=== PATIENT | female | born 1950 | race Hispanic/Latino ===

== ENCOUNTER 2016-12-08 22:54 | Emergency (ER) | payer OTHER ==
[~2016-12-08] VITALS: Ht 167.6 cm; Wt 59.0 kg
[~2016-12-08 22:54] MED LIST: ADVAIR DISKU 11 UNIT INH; ALBUTEROL0.09 MG/A1 INH; AZITHROMYCIN250 MG PO; CYCLOBENZAPRINE5 M2 PO; HYDROCHLOROTH12.5 MG PO; HYZAAR 12.5 MG-1 TAB PO; IBU-6600 MG PO; KLOR-CON 10MEQ10 MEQ PO; LISINOPRIL HCTZ1 TAB PO; MEDROL4 M2 PO; PERCOCET 325 MG1 TA2 PO; PERCOCET 5-3251 EACH PO; PREDNICOT10 MG AD; PREDNISONE 20MG20 MG PO; PREDNISONE50 MG PO; TUDORZA PR400 MCG/Ac INH; VENTOLIN H0.09 MG/Ac INH; VISTARIL25 MG PO; ZOFRAN 4 MG TABL4 MG PO; ZOFRAN4 M1 PO
--- NOTE | 2016-12-08 23:10 | ED DYSPNEA/ASTHMA COMPLAINT ---
History of Present Illness General Chief Complaint: General Adult Stated Complaint: NAUSEA, RAPID HEART BEAT PER PT, HX OF COPD Source: patient, family Exam Limitations: no limitations Vital Signs & Intake/Output Vital Signs & Intake/Output Vital Signs Date Time Temp Pulse Resp B/P Pulse O2 O2 Flow FiO2 Ox Delivery Rate 12/09 0035 97 Room Air 12/08 2306 98.5 122 18 112/64 94 Room Air ED Intake and Output 12/09 0000 12/08 1200 Intake Total Output Total Balance Patient 130 lb Weight Allergies Coded Allergies: hydrochlorothiazide (Intermediate, FACIAL SWELLING 09/22/16) Reconcile Medications Aclidinium [place]ane (Tudorza Pressair) 400 MCG/ACTUATION AER.POW.BA 400 MCG INH BID COPD (Reported) Albuterol Sulfate (Ventolin Hfa) 90 MCG HFA.AER.AD 2 PUFF INH PRN COPD ( Reported) Albuterol Sulfate (Ventolin Hfa) 90 MCG HFA.AER.AD 2 PUF INH Q4-6 PRN PRN WHEEZE Amoxicillin/Potassium Clav (Augmentin 875-125 Tablet) 875 MG-125 MG TABLET 1 TAB PO BID BRONCHITIS Cyclobenzaprine HCl 5 MG TABLET 1 TAB PO TIDPRN PRN pain Fluticasone-Salmeterol (Advair 100-50 Diskus) 100 MCG-50 MCG/DOSE BLST.W.DEV 1 PUF INH BID COPD (Reported) Hydrochlorothiazide 12.5 MG CAPSULE 1 TAB PO DAILY HTN Hydrochlorothiazide/Losartan (Hyzaar 12.5 MG-100 MG) 1 TAB TAB 1 TAB PO DAILY BP (Reported) Methylprednisolone. (Medrol) 4 MG TAB.DS.PK 1 DP PO AD radiculopathy 6 on day 1 then reduce by one tablet daily until gone Oxycodone HCl/Acetaminophen (Percocet 5-325 MG Tablet) 5 MG-325 MG TABLET 1 TAB PO TID PRN pain POTASSIUM CHLORIDE (KLOR-CON 10mEq TAB) 10 MEQ TABLET.ER 1 TAB PO DAILY PREVENT HYPERKALEMIA Prednisone 50 MG TABLET 1 TAB PO DAILY BRONCHITIS Triage Nurses Notes Reviewed? yes Onset: Gradual Duration: hour(s): Timing: recent history Severity: moderate Activities at Onset: "I was walking up the stairs" Prior Episodes/Possible Cause: occasional episodes Modifying Factors: Improves With: rest. Associated Symptoms: wheezing, palpitations HPI: 66 yo woman with copd, walked up a flight of stairs and felt short of breath and wheezy. She notes that she feels better after 2 nebulizer treatments, "but then my heart started beating so quickly." She notes that she is feeling better now. Past History Travel History Traveled to [place] past 21 day No Medical History Any Pertinent Medical History? 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 No Review of Systems Review of Systems Constitutional: Reports: no symptoms. EENTM: Reports: no symptoms. Respiratory: Reports: no symptoms. Cardiovascular: Reports: no symptoms. GI: Reports: no symptoms. Genitourinary: Reports: no symptoms. Musculoskeletal: Reports: no symptoms. Skin: Reports: no symptoms. Neurological/Psychological: Reports: no symptoms. Hematologic/Endocrine: Reports: no symptoms. Immunologic/Allergic: Reports: no symptoms. All Other Systems: Reviewed and Negative Physical Exam Physical Exam General Appearance: well developed/nourished, mild distress Head: atraumatic, normal appearance Eyes: Bilateral: normal appearance. Ears, Nose, Throat: normal pharynx, normal ENT inspection Neck: normal inspection, supple, full range of motion Respiratory: chest non-tender, wheezing Cardiovascular: regular rate/rhythm Gastrointestinal: normal bowel sounds, soft, non-tender, no organomegaly Extremities: normal inspection, normal capillary refill, normal range of motion, no edema Neurologic/Psych: no motor/sensory deficits, awake, alert, oriented x 3 Skin: intact, normal color, warm/dry Core Measures ACS in differential dx? No Severe Sepsis Present: No Septic Shock Present: No Progress Differential Diagnosis: asthma, costochondritis, CHF, COPD Plan of Care: Orders Procedure Date/time Status EKG 12/08 2300 Active TROPONIN LEVEL 12/08 2258 Complete COMPREHENSIVE METABOLIC PANEL 12/08 2258 Complete CBC WITHOUT DIFFERENTIAL 12/08 2258 Complete Current Medications Sig/Stefany Start time Last Medication Dose Stop Time Status Admin Amoxicillin/ 1,000 MG ONCE ONE 12/09 114 UNVr Clavulanate Potassium 12/09 115 (Augmentin) Prednisone 60 MG ONCE ONE 12/09 114 UNVr 12/09 115 Laboratory Tests 12/08/16 2324: Anion Gap 13, Estimated GFR 55 L, BUN/Creatinine Ratio 15.0, Glucose 126 H, Calcium 9.5, Total Bilirubin 0.7, AST 30, ALT 35, Alkaline Phosphatase 106, Troponin I < 0.01, Total Protein 7.3, Albumin 3.9, Globulin 3.4, Albumin/ Globulin Ratio 1.1, CBC w Diff NO MAN DIFF REQ, RBC 4.94, MCV 90.8, MCH 30.0, RDW 13.9, MPV 8.9, Gran % 74.8, Lymphocytes % 15.0 L, Monocytes % 6.8, Eosinophils % 3.1, Basophils % 0.3, Absolute Granulocytes 8.9 H, Absolute Lymphocytes 1.8, Absolute Monocytes 0.8 H, Absolute Eosinophils 0.4, Absolute Basophils 0, PUBS MCHC 33.1 Diagnostic Imaging: Viewed by Me: Radiology Read. Discussed w/RAD: Radiology Read. CXR Impression: no acute abnormality, no infiltrates, normal size heart, normal mediastinum Initial ED EKG: normal axis, normal intervals, normal p-waves, normal QRS complex, normal sinus rhythm Comments: PATIENT: DARIEN ELIZABETH PRESENT AGE: 66 PATIENT ACCOUNT NO: [id number] : 48 LOCATION: [facility] ORDERING PHYSICIAN: DYLON JUAN MD SERVICE DATE: 12/08/16 EXAM TYPE: RAD - XRY-PORTABLE CHEST XRAY EXAMINATION: XR PORTABLE CHEST CLINICAL INFORMATION: Dyspnea. COMPARISON: Multiple priors, most recently chest CT from 08/26/2016. TECHNIQUE: Portable view of the chest was obtained. FINDINGS: Cardiac leads overlie the chest. The lungs are well expanded. There is no focal consolidation, edema, or effusion. No pneumothorax. The cardiomediastinal silhouette is within normal limits. No acute osseous abnormality. IMPRESSION: No acute pulmonary findings. DICTATED BY: SONAL SANTANA MD DATE/TIME DICTATED:12/09/1648 VISCERA WASHER:SHEYLA DATE/TIME TRANSCRIBED:12/09/1648 CONFIDENTIAL, DO NOT COPY WITHOUT APPROPRIATE AUTHORIZATION. <Electronically signed in Other Vendor System> SIGNED BY: SONAL SANTANA MD 12/09 0053 Departure Departure Disposition: HOME OR SELF CARE Condition: Stable Clinical Impression Primary Impression: Bronchitis Secondary Impressions: COPD (chronic obstructive pulmonary disease) Referrals: AMISH MCCRARY,BONI Rivera (PCP/Family) Departure Forms: Customer Survey General Discharge Information Prescriptions: Current Visit Scripts Amoxicillin/Potassium Clav (Augmentin 875-125 Tablet) 1 TAB PO BID #20 TAB Prednisone 1 TAB PO DAILY #4 TAB Albuterol Sulfate (Ventolin Hfa) 2 PUF INH Q4-6 PRN PRN WHEEZE #1 INHAL Ref 1 Comments 12/09/16, 1:04am... pt has been feeling well in ED... 02 sat >98%.... labs/cxr benign... pt safe for discharge... gave steroids/abx and sent rx of same to her pharmacy... close follow up advised. Critical Care Note Critical Care Note Critical Care Time: non-applicable
[2016-12-08 23:43] LABS: ABSOLUTE BASOPHIL COUNT 0 /CUMM (0.0-0.2); ABSOLUTE EOSINOPHIL COUNT 0.4 /CUMM (0.0-0.7); ABSOLUTE GRANULOCYTE CT 8.9 /CUMM (1.4-6.5); ABSOLUTE LYMPH COUNT 1.8 /CUMM (1.2-3.4); ABSOLUTE MONOCYTE COUNT 0.8 /CUMM (0.10-0.60); BASOPHIL % 0.3 % (0.0-2.0); EOSINOPHIL % 3.1 % (0-5); GRANULOCYTE % 74.8 % (42.2-75.2); HEMATOCRIT 44.8 % (37-47); MEAN CORPUSCULAR HGB CONC 33.1 G/DL (33.0-37.0); MEAN CORPUSCULAR VOLUME 90.8 FL (81.0-99.0); MEAN PLATELET VOLUME 8.9 FL (7.4-10.4); RBC DISTRIBUTION WIDTH 13.9 % (11.5-14.5); RED BLOOD CELL CT 4.94 /CUMM (4.20-5.40); WHITE BLOOD CELL COUNT 11.9 /CUMM (4.8-10.8)
--- NOTE | 2016-12-09 00:53 | RADIOLOGY REPORT ---
EXAMINATION: XR PORTABLE CHEST CLINICAL INFORMATION: Dyspnea. COMPARISON: Multiple priors, most recently chest CT from 08/26/2016. TECHNIQUE: Portable view of the chest was obtained. FINDINGS: Cardiac leads overlie the chest. The lungs are well expanded. There is no focal consolidation, edema, or effusion. No pneumothorax. The cardiomediastinal silhouette is within normal limits. No acute osseous abnormality. IMPRESSION: No acute pulmonary findings.
[2016-12-09] MEDS ORDERED: AUGMENTIN 875-1 EACH PO (01:02)
[2016-12-09] MEDS ORDERED: PREDNISONE50 M1 PO (01:02)
[2016-12-09] MEDS ORDERED: VENTOLIN HFA18 GM INH (01:02)
[2016-12-09 01:16] VITALS: BP 114/73
== END 2016-12-09 01:19 ==
LOC: ERH 22:54
PROVIDERS: Pediatrics
DX: J44.9 Chronic obstructive pulmonary disease, unspecified (principal)
CPT/HCPCS: 93005; 93010; J3490

== ENCOUNTER 2018-01-26 11:57 | Inpatient (IN) | payer OTHER ==
[~2018-01-26] VITALS: Ht 162.6 cm; Wt 90.3 kg
[~2018-01-26 11:57] MED LIST changes: +ADVAIR 100-501 EACH INH; -ADVAIR DISKU 11 UNIT INH; +AUGMENTIN 875-1 EACH PO; +BACTRIM DS TAB1 EACH PO; +DOXYCYCLINE HY100 M4 PO; +HYZAAR 100-12.1 EACH PO; -HYZAAR 12.5 MG-1 TAB PO; +PREDNISONE50 M1 PO; +VENTOLIN HFA18 GM INH
--- NOTE | 2018-01-26 13:52 | ED GI/GU/ABDOMINAL COMPLAINT ---
History of Present Illness General Chief Complaint: Abdominal Pain/Flank Pain Stated Complaint: ABD PAIN X 2 WEEKS Source: patient Exam Limitations: no limitations Vital Signs & Intake/Output Vital Signs & Intake/Output Vital Signs Date Time Temp Pulse Resp B/P B/P Pulse O2 O2 Flow FiO2 Mean Ox Delivery Rate 01/26 1952 97.7 77 24 158/70 98 01/26 1728 97.4 72 20 152/66 97 Room Air 01/26 1542 98.1 67 20 159/70 97 Room Air 01/26 1502 98.1 66 18 148/80 98 Room Air 01/26 1439 97 Room Air 01/26 1214 97.3 71 20 119/78 98 Room Air Allergies Coded Allergies: No Known Allergies (01/26/18) Reconcile Medications Albuterol Sulfate (Ventolin Hfa) 90 MCG HFA.AER.AD 2 PUF INH Q4-6 PRN PRN WHEEZE Fluticasone-Salmeterol (Advair 100-50 Diskus) 100 MCG-50 MCG/DOSE BLST.W.DEV 1 PUF INH BID COPD (Reported) Losartan/Hydrochlorothiazide (Hyzaar 100-12.5 Tablet) 100 MG-12.5 MG TABLET 1 TAB PO DAILY HEART (Reported) Omeprazole 40 MG CAPSULE.DR 1 CAP PO DAILY GI (Reported) Umeclidinium [place] (Incruse Ellipta) 62.5 MCG/ACTUATION BLST.W.DEV 1 PUFF PO DAILY BREATHING PROBLEMS (Reported) Triage Note: PT C/O ABDOMINAL PAIN X 2 WEEKS. + NAUSEA. PT STATES SHE ATE TOAST AND COFFEE THIS MORNING AND THE PAIN STARTED AGAING. STATES THE PAIN COMES BACK AFTER EATING OR DRINKING WATER, Triage Nurses Notes Reviewed? yes ? n Is pt currently ? No Onset: Gradual Duration: week(s): Timing: recent history Quality/Severity: moderate Location: left lower quadrant HPI: 67yo female with hx of COPD, HTN, GERD presents to ED complaining of LLQ pain x 2 weeks. Patient states the pain has been gradually worsening and is currently severe, 10/10, worse with movement. Patient has no history of a similar abdominal pain. Patient also reports nausea without vomiting. Patient reports being very thirsty. Last bowel movement was this morning and normal. She denies dysuria, urinary frequency, diarrhea, constipation fever. (Roya Pierce) Past History Travel History Traveled to [place] past 21 day No Medical History Any Pertinent Medical History? 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 No (Roya Pierce) Review of Systems Review of Systems Constitutional: Reports: no symptoms. EENTM: Reports: no symptoms. Respiratory: Reports: no symptoms. Cardiovascular: Reports: no symptoms. GI: Reports: see HPI. Genitourinary: Reports: no symptoms. Musculoskeletal: Reports: no symptoms. Skin: Reports: no symptoms. Neurological/Psychological: Reports: no symptoms. Hematologic/Endocrine: Reports: no symptoms. Immunologic/Allergic: Reports: no symptoms. All Other Systems: Reviewed and Negative (Roya Pierce) Physical Exam Physical Exam General Appearance: well developed/nourished, alert, awake Head: atraumatic, normal appearance Eyes: Bilateral: normal appearance. Ears, Nose, Throat, Mouth: hearing grossly normal Neck: normal inspection, supple, full range of motion Respiratory: normal breath sounds, no respiratory distress, lungs clear Cardiovascular: regular rate/rhythm Gastrointestinal: soft, EPIGASTRIC, LUQ, LLQ TENDERNESS WITH GAURDING, NO ECCHYMOSIS Back: normal inspection, normal range of motion, NO CVA TENDERNESS Extremities: normal range of motion Neurologic/Psych: awake, alert, oriented x 3 Skin: intact, normal color, warm/dry Core Measures ACS in differential dx? No Sepsis Present: No Sepsis Focused Exam Completed? No (Roya Pierce) Progress Differential Diagnosis: bowel obstruction, cholecystitis, diverticulitis, gastritis, hepatitis, hernia, ischemic bowel, inflamm bowel dis, ovarian cyst, ovarian torsion, pancreatitis, PID/cervicitis, peptic ulcer, perforated viscous, SBO, UTI/pyelo Plan of Care: Orders Procedure Date/time Status Nothing by Mouth 01/27 B Active ED Holding Orders 01/26 2136 Active Admit to inpatient 01/26 2136 Active Vital Signs 01/26 2136 Active Code Status 01/26 2136 Active Add-on Test (ER Only) 01/26 173 Active URINALYSIS 01/26 140 Complete TRIGLYCERIDES 01/26 140 Complete LIPASE 01/26 140 Complete LACTIC ACID 01/26 140 Complete HIGH SENSITIVITY CRP 01/26 140 Complete COMPREHENSIVE METABOLIC PANEL 01/26 140 Complete AMYLASE 01/26 1409 Complete CBC WITHOUT DIFFERENTIAL 01/26 1346 Complete Current Medications Sig/Stefany Start time Last Medication Dose Stop Time Status Admin Ampicillin Sodium/ 1,500 MG ONCE ONE 01/26 2145 UNir Sulbactam Sodium 01/26 2214 (Unasyn) Sodium Chloride 100 ML (Normal Saline 0.9%) Laboratory Tests 01/26/18 1709: Lactic Acid Cancelled 01/26/18 1656: Urine Color YEL, Urine Clarity CLEAR, Urine pH 6.0, Ur Specific Joy 1.020, Urine Protein NEG, Urine Ketones NEG, Urine Nitrite NEG, Urine Bilirubin NEG@ ICTO, Urine Urobilinogen 1.0, Ur Leukocyte Esterase NEG, Ur Microscopic EXAM NOT REQUIRED, Urine Hemoglobin NEG, Urine Glucose NEG 01/26/18 1426: CBC w Diff NO MAN DIFF REQ, RBC 4.67, MCV 90.9, MCH 30.9, MCHC 33.9, RDW 15.6 H , MPV 8.9, Gran % 80.1 H, Lymphocytes % 9.8 L, Monocytes % 7.2, Eosinophils % 2.4, Basophils % 0.5, Absolute Granulocytes 6.9 H, Absolute Lymphocytes 0.8 L, Absolute Monocytes 0.6, Absolute Eosinophils 0.2, Absolute Basophils 0 01/26/18 1409: Anion Gap 11, Estimated GFR 55 L, BUN/Creatinine Ratio 20.0, Glucose 125 H, Lactic Acid 1.7, Calcium 9.9, Total Bilirubin 4.6 H, AST 310 H, ALT 397 H, Alkaline Phosphatase 332 H, C-React Prot High Sens 12.7 H, Total Protein 7.6, Albumin 4.2, Globulin 3.4, Albumin/Globulin Ratio 1.2, Triglycerides 71, Amylase 1171 H, Lipase > 83319 H 01/26/18 1346: Sodium Cancelled, Potassium Cancelled, Chloride Cancelled, Carbon Dioxide Cancelled, Anion Gap Cancelled, BUN Cancelled, Creatinine Cancelled, BUN/ Creatinine Ratio Cancelled, Glucose Cancelled, Calcium Cancelled, Total Bilirubin Cancelled, AST Cancelled, ALT Cancelled, Alkaline Phosphatase Cancelled, Total Protein Cancelled, Albumin Cancelled, Globulin Cancelled, Albumin/Globulin Ratio Cancelled, Amylase Cancelled, Lipase Cancelled Patient reports improvement in pain following IV morphine and Zofran. Patient medicated with 2 L normal saline. Labs show abnormality in amylase, lipase, bilirubin, liver enzymes. CT scan shows cholelithiasis and pancreatitis. Awaiting general surgery and GI consult. The patient was signed out to Dr. Naik pending consults. Diagnostic Imaging: Viewed by Me: CT Scan. Discussed w/RAD: CT Scan. Radiology Impression: PATIENT: DARIEN ELIZABETH PRESENT AGE: 67 PATIENT ACCOUNT NO: [id number] : 48 LOCATION: [facility] ORDERING PHYSICIAN: Roya ZHENG SERVICE DATE: 01/26/18 EXAM TYPE: CAT - CT ABD & PELVIS W IV CONTRAST EXAMINATION: CT ABDOMEN AND PELVIS WITH CONTRAST CLINICAL INFORMATION: 67-year-old female with left-sided abdominal pain for 2 weeks. Elevated bilirubin and LFTs. COMPARISON: CT of the abdomen and pelvis on 09/22/2016. (Cholelithiasis). TECHNIQUE: Multidetector volumetric imaging was performed of the abdomen and pelvis following IV administration of 95 mL of Optiray 320 intravenous contrast. Sagittal and coronal reformatted images were obtained on the technologist's workstation. DLP: 515 mGy-cm FINDINGS : HAND STRIPER: Noncontributory. LUNG BASES: The visualized lung bases are unremarkable. LIVER, GALLBLADDER, AND BILIARY TREE: The liver is normal in size, contour, and attenuation. There is mild dilatation of the intrahepatic biliary ducts. The common bile duct measures 8 mm in the region of the head of the pancreas. Small stones are present in the gallbladder. The stones are located in the gallbladder body and proximal portion of the gallbladder lumen. Gallbladder wall is of average thickness measuring 2 mm. No pericholecystic fluid or surrounding inflammatory reaction is seen. PANCREAS: The pancreas is normal in size but there is evidence of peripancreatic stranding diagnostic of early pancreatitis. No complications are seen. No large effusions are present. SPLEEN: Unremarkable. ADRENAL GLANDS: Unremarkable. KIDNEYS AND URETERS: The kidneys are normal in size, shape, and attenuation. No hydronephrosis, hydroureter, or calculi seen. No perinephric stranding. BLADDER: Empty. GASTROINTESTINAL TRACT: Diverticula are seen in the sigmoid colon. There is no evidence of diverticulitis. The appendix is normal. ABDOMINAL WALL: No significant hernia is appreciated. LYMPH NODES: Normal. VASCULAR: Unremarkable. PELVIC VISCERA: Uterus is retroverted and normal in size. No free fluid is seen. OSSEOUS STRUCTURES: Disc disease L4-L5. There is evidence of a free disc fragment posterior to L5. IMPRESSION: 1. Cholelithiasis. 2. Peripancreatic stranding secondary to acute pancreatitis. No complications. DICTATED BY: Conrad Arias MD DATE/TIME DICTATED:01/26/181742 SALON PROFESSIONAL:SHEYLA DATE/TIME TRANSCRIBED:1742 CONFIDENTIAL, DO NOT COPY WITHOUT APPROPRIATE AUTHORIZATION. < Electronically signed in Other Vendor System> SIGNED BY: Conrad Arias MD 01/26/18 5661 Initial ED EKG: none Hand-Off Endorsed To: Robert Naik MD Endorsed Time: 1835 Pending: consult (Roya Pierce) Hand-Off Endorsed To: Nahum Niño MD Endorsed Time: 1904 Pending: consult (Surgery) Comments: D/W GI, Dr. Yeh available. D/W Dr. Mariee, call Saron PA for evaluation. (Robert Naik MD) Departure Departure Disposition: STILL A PATIENT Condition: Stable Clinical Impression Primary Impression: Gallstone pancreatitis Secondary Impressions: Abdominal pain Qualifiers: Abdominal location: left lower quadrant Qualified Code: R10.32 - Left lower quadrant pain Referrals: Kane MCCRARY,Cecil Rivera (PCP/Family) Departure Forms: Customer Survey General Discharge Information (Roya Pierce) PA/REGISTERED MEDICAL TRANSCRIPTIONIST Co-Sign Statement Statement: ED Attending supervision documentation- x I saw and evaluated the patient. I have also reviewed all the pertinent lab results and diagnostic results. I agree with the findings and the plan of care as documented in the PA's/REGISTERED MEDICAL TRANSCRIPTIONIST's documentation. 2 weeks of abdominal pain [] I have reviewed the ED Record and agree with the PA's/REGISTERED MEDICAL TRANSCRIPTIONIST's documentation. [] Additions or exceptions (if any) to the PAs/REGISTERED MEDICAL TRANSCRIPTIONIST's note and plan are summarized below: [] (Gumaro MCCRARY,Robert) Admission Note Spoke With: Krystal Wood MD Documentation of Exam: Documentation of any treatments & extenuating circumstances including Concerns Regarding Discharge (functional status, medication knowledge or non-compliance, living conditions, etc.) that warrant an admission rather than observation: [IV ABX, IV PAIN CONTROL, IV FLUIDS, GASTROENTEROLOGY AND SURGICAL CONSULT] PA/REGISTERED MEDICAL TRANSCRIPTIONIST Co-Sign Statement Statement: ED Attending supervision documentation- [] I saw and evaluated the patient. I have also reviewed all the pertinent lab results and diagnostic results. I agree with the findings and the plan of care as documented in the PA's/REGISTERED MEDICAL TRANSCRIPTIONIST's documentation. [] I have reviewed the ED Record and agree with the PA's/REGISTERED MEDICAL TRANSCRIPTIONIST's documentation. [] Additions or exceptions (if any) to the PAs/REGISTERED MEDICAL TRANSCRIPTIONIST's note and plan are summarized below: [Patient has been seen and evaluated by surgery. Patient will be a medical admission with surgical and gastroenterology consultation.] (Renay MCCRARY,Nahum Howard
[2018-01-26 14:37] LABS: ABSOLUTE BASOPHIL COUNT 0 /CUMM (0.0-0.2); ABSOLUTE EOSINOPHIL COUNT 0.2 /CUMM (0.0-0.7); ABSOLUTE GRANULOCYTE CT 6.9 /CUMM (1.4-6.5); ABSOLUTE LYMPH COUNT 0.8 /CUMM (1.2-3.4); ABSOLUTE MONOCYTE COUNT 0.6 /CUMM (0.10-0.60); BASOPHIL % 0.5 % (0.0-2.0); EOSINOPHIL % 2.4 % (0-5); GRANULOCYTE % 80.1 % (42.2-75.2); HEMATOCRIT 42.5 % (37-47); MEAN CORPUSCULAR HGB 30.9 PG (27.0-31.0); MEAN CORPUSCULAR HGB CONC 33.9 G/DL (33.0-37.0); MEAN CORPUSCULAR VOLUME 90.9 FL (81.0-99.0); MEAN PLATELET VOLUME 8.9 FL (7.4-10.4); PLATELET COUNT 208 /CUMM (130-400); RBC DISTRIBUTION WIDTH 15.6 % (11.5-14.5); RED BLOOD CELL CT 4.67 /CUMM (4.20-5.40); WHITE BLOOD CELL COUNT 8.6 /CUMM (4.8-10.8)
[2018-01-26] MEDS ORDERED: INCRUSE ELLI62.5 MCG PO (15:43)
[2018-01-26] MEDS ORDERED: OMEPRAZOLE40 M1 PO (15:44)
--- NOTE | 2018-01-26 17:58 | CT SCAN REPORT ---
EXAMINATION: CT ABDOMEN AND PELVIS WITH CONTRAST CLINICAL INFORMATION: 67-year-old female with left-sided abdominal pain for 2 weeks. Elevated bilirubin and LFTs. COMPARISON: CT of the abdomen and pelvis on 09/22/2016. (Cholelithiasis). TECHNIQUE: Multidetector volumetric imaging was performed of the abdomen and pelvis following IV administration of 95 mL of Optiray 320 intravenous contrast. Sagittal and coronal reformatted images were obtained on the technologist's workstation. DLP: 515 mGy-cm FINDINGS: SOLE FILLER: Noncontributory. LUNG BASES: The visualized lung bases are unremarkable. LIVER, GALLBLADDER, AND BILIARY TREE: The liver is normal in size, contour, and attenuation. There is mild dilatation of the intrahepatic biliary ducts. The common bile duct measures 8 mm in the region of the head of the pancreas. Small stones are present in the gallbladder. The stones are located in the gallbladder body and proximal portion of the gallbladder lumen. Gallbladder wall is of average thickness measuring 2 mm. No pericholecystic fluid or surrounding inflammatory reaction is seen. PANCREAS: The pancreas is normal in size but there is evidence of peripancreatic stranding diagnostic of early pancreatitis. No complications are seen. No large effusions are present. SPLEEN: Unremarkable. ADRENAL GLANDS: Unremarkable. KIDNEYS AND URETERS: The kidneys are normal in size, shape, and attenuation. No hydronephrosis, hydroureter, or calculi seen. No perinephric stranding. BLADDER: Empty. GASTROINTESTINAL TRACT: Diverticula are seen in the sigmoid colon. There is no evidence of diverticulitis. The appendix is normal. ABDOMINAL WALL: No significant hernia is appreciated. LYMPH NODES: Normal. VASCULAR: Unremarkable. PELVIC VISCERA: Uterus is retroverted and normal in size. No free fluid is seen. OSSEOUS STRUCTURES: Disc disease L4-L5. There is evidence of a free disc fragment posterior to L5. IMPRESSION: 1. Cholelithiasis. 2. Peripancreatic stranding secondary to acute pancreatitis. No complications.
[2018-01-26 23:04] VITALS: BP 150/80
--- NOTE | 2018-01-26 23:15 | Cons- General Surgery ---
Pamela Turner 01/26/182306: General Information and HPI Consulting Request Date of Consult: 01/26/18 Requested By: Krystal Wood MD Reason for Consult: gallstone pancreatitis History of Present Illness: 67yoF with 2 weeks hx worsening abd pain, came to ED today due to severe mid- epigastric pain. Some nausea, no vomiting. +chills at home, subjective fever. No co/sob. No changes in urination or bowel habits. decreased appetite. No hx pancreatitis, no dx gallstones, no abdominal surgery history. Hx colonoscopy and egd, normal per pt. no family hx gi d/o, pancreatic ca, pancreatitis. Allergies/Medications Allergies: Coded Allergies: No Known Allergies (01/26/18) Home Med List: Albuterol Sulfate (Ventolin Hfa) 90 MCG HFA.AER.AD 2 PUF INH Q4-6 PRN PRN WHEEZE Fluticasone-Salmeterol (Advair 100-50 Diskus) 100 MCG-50 MCG/DOSE BLST.W.DEV 1 PUF INH BID COPD (Reported) Losartan/Hydrochlorothiazide (Hyzaar 100-12.5 Tablet) 100 MG-12.5 MG TABLET 1 TAB PO DAILY HEART (Reported) Omeprazole 40 MG CAPSULE.DR 1 CAP PO DAILY GI (Reported) Umeclidinium [place] (Incruse Ellipta) 62.5 MCG/ACTUATION BLST.W.DEV 1 PUFF PO DAILY BREATHING PROBLEMS (Reported) Past History Medical History Neurological: NONE EENT: NONE Cardiovascular: hypertension Respiratory: COPD Gastrointestinal: NONE Hepatic: NONE Renal: NONE Musculoskeletal: NONE Psychiatric: NONE Endocrine: NONE Blood Disorders: NONE Cancer(s): NONE PAINTER DECORATOR/Reproductive: NONE Surgical History Pertinent Surgical History: none Psychosocial History Smoking Status: Former Smoker ETOH Use: denies use Illicit Drug Use: denies illicit drug use Exam & Diagnostic Data Vital Signs and I&O Vital Signs Date Time Temp Pulse Resp B/P B/P Pulse O2 O2 Flow FiO2 Mean Ox Delivery Rate 01/264 98.1 83 18 150/80 94 01/267 97.8 79 18 170/78 96 Room Air 01/26 1952 97.7 77 24 158/70 98 01/26 1728 97.4 72 20 152/66 97 Room Air 01/26 1542 98.1 67 20 159/70 97 Room Air 01/26 1502 98.1 66 18 148/80 98 Room Air 01/26 1439 97 Room Air 01/26 1214 97.3 71 20 119/78 98 Room Air Intake & Output 01/26 1600 01/26 0800 01/26 0000 01/25 1600 01/25 0801/25 0000 Intake Total 1000 Output Total Balance 1000 Intake, IV 1000 Patient 210 lb Weight Weight Reported by Patient Measurement Method Physical Exam: geb- nad card- s1s2 pulm- ctab abd- obese, soft, nt, +bs ext- calves soft nt bl Last 24 Hours of Labs: Laboratory Tests 01/26 01/26 1709 1656 Chemistry Lactic Acid Cancelled Urines Urine Color (YEL,AMB,STR) YEL Urine Clarity (CLEAR) CLEAR Urine pH (5.0 - 8.0) 6.0 Ur Specific [place] (1.001 - 1.035) 1.020 Urine Protein (NEG,<30 MG/DL) NEG Urine Ketones (NEG) NEG Urine Nitrite (NEG) NEG Urine Bilirubin (NEG) NEG@ICTO Urine Urobilinogen (0.1 - 1.0 EU/dl) 1.0 Ur Leukocyte Esterase (NEG) NEG Ur Microscopic EXAM NOT REQUIRED Urine Hemoglobin (NEG) NEG Urine Glucose (N MG/DL) NEG 01/26 01/26 1426 1409 Chemistry Sodium (137 - 145 mmol/L) 139 Potassium (3.5 - 5.1 mmol/L) 4.2 Chloride (98 - 107 mmol/L) 102 Carbon Dioxide (22 - 30 mmol/L) 26 Anion Gap (5 - 16) 11 BUN (7 - 17 mg/dL) 20 H Creatinine (0.5 - 1.0 mg/dL) 1.0 Estimated GFR (>60 ml/min) 55 L BUN/Creatinine Ratio (7 - 25 %) 20.0 Glucose (65 - 99 mg/dL) 125 H Lactic Acid (0.7 - 2.1 mmol/L) 1.7 Calcium (8.4 - 10.2 mg/dL) 9.9 Total Bilirubin (0.2 - 1.3 mg/dL) 4.6 H AST (14 - 36 U/L) 310 H ALT (9 - 52 U/L) 397 H Alkaline Phosphatase (<127 U/L) 332 H C-React Prot High Sens (1.0 - 3.0 mg/L) 12.7 H Total Protein (6.3 - 8.2 g/dL) 7.6 Albumin (3.5 - 5.0 g/dL) 4.2 Globulin (1.9 - 4.2 gm/dL) 3.4 Albumin/Globulin Ratio (1.1 - 2.2 %) 1.2 Triglycerides (<150 mg/dL) 71 Amylase (30 - 110 U/L) 1171 H Lipase (23 - 300 U/L) > 64767 H Hematology CBC w Diff NO MAN DIFF REQ WBC (4.8 - 10.8 /CUMM) 8.6 RBC (4.20 - 5.40 /CUMM) 4.67 Hgb (12.0 - 16.0 G/DL) 14.4 Hct (37 - 47 %) 42.5 MCV (81.0 - 99.0 FL) 90.9 MCH (27.0 - 31.0 PG) 30.9 MCHC (33.0 - 37.0 G/DL) 33.9 RDW (11.5 - 14.5 %) 15.6 H Plt Count (130 - 400 /CUMM) 208 MPV (7.4 - 10.4 FL) 8.9 Gran % (42.2 - 75.2 %) 80.1 H Lymphocytes % (20.5 - 51.1 %) 9.8 L Monocytes % (1.7 - 9.3 %) 7.2 Eosinophils % (0 - 5 %) 2.4 Basophils % (0.0 - 2.0 %) 0.5 Absolute Granulocytes (1.4 - 6.5 /CUMM) 6.9 H Absolute Lymphocytes (1.2 - 3.4 /CUMM) 0.8 L Absolute Monocytes (0.10 - 0.60 /CUMM) 0.6 Absolute Eosinophils (0.0 - 0.7 /CUMM) 0.2 Absolute Basophils (0.0 - 0.2 /CUMM) 0 01/26 1346 Chemistry Sodium Cancelled Potassium Cancelled Chloride Cancelled Carbon Dioxide Cancelled Anion Gap Cancelled BUN Cancelled Creatinine Cancelled BUN/Creatinine Ratio Cancelled Glucose Cancelled Calcium Cancelled Total Bilirubin Cancelled AST Cancelled ALT Cancelled Alkaline Phosphatase Cancelled Total Protein Cancelled Albumin Cancelled Globulin Cancelled Albumin/Globulin Ratio Cancelled Amylase Cancelled Lipase Cancelled Imaging Results: SERVICE DATE: 01/26/18 EXAM TYPE: CAT - CT ABD & PELVIS W IV CONTRAST EXAMINATION: CT ABDOMEN AND PELVIS WITH CONTRAST CLINICAL INFORMATION: 67-year-old female with left-sided abdominal pain for 2 weeks. Elevated bilirubin and LFTs. COMPARISON: CT of the abdomen and pelvis on 09/22/2016. (Cholelithiasis). TECHNIQUE: Multidetector volumetric imaging was performed of the abdomen and pelvis following IV administration of 95 mL of Optiray 320 intravenous contrast. Sagittal and coronal reformatted images were obtained on the technologist's workstation. DLP: 515 mGy-cm FINDINGS: PUBLIC HEALTH INSPECTOR: Noncontributory. LUNG BASES: The visualized lung bases are unremarkable. LIVER, GALLBLADDER, AND BILIARY TREE: The liver is normal in size, contour, and attenuation. There is mild dilatation of the intrahepatic biliary ducts. The common bile duct measures 8 mm in the region of the head of the pancreas. Small stones are present in the gallbladder. The stones are located in the gallbladder body and proximal portion of the gallbladder lumen. Gallbladder wall is of average thickness measuring 2 mm. No pericholecystic fluid or surrounding inflammatory reaction is seen. PANCREAS: The pancreas is normal in size but there is evidence of peripancreatic stranding diagnostic of early pancreatitis. No complications are seen. No large effusions are present. SPLEEN: Unremarkable. ADRENAL GLANDS: Unremarkable. KIDNEYS AND URETERS: The kidneys are normal in size, shape, and attenuation. No hydronephrosis, hydroureter, or calculi seen. No perinephric stranding. BLADDER: Empty. GASTROINTESTINAL TRACT: Diverticula are seen in the sigmoid colon. There is no evidence of diverticulitis. The appendix is normal. ABDOMINAL WALL: No significant hernia is appreciated. LYMPH NODES: Normal. VASCULAR: Unremarkable. PELVIC VISCERA: Uterus is retroverted and normal in size. No free fluid is seen. OSSEOUS STRUCTURES: Disc disease L4-L5. There is evidence of a free disc fragment posterior to L5. IMPRESSION: 1. Cholelithiasis. 2. Peripancreatic stranding secondary to acute pancreatitis. No complications. Assessment/Plan Assessment/Plan A-67F with gallstone pancreatitis, with elevated bili and lipase/amylase, stable P- agree w medicine admit GI consult- likely ercp NPO aggressive IVF prn pain meds eventual cholecystectomy will dw Dr. Mariee Consult Acknowledgment - Thank you for your consult request. Kodi Ranjith ACEVEDO 01/28/18 1321: Review of Systems Review of Systems: All negative aside for the above mentioned pertinent positives. Assessment/Plan Consult Acknowledgment - Thank you for your consult request. Attending MD Review Statement Attending Statement Attending MD Statement: examined this patient, discuss w/resident/PA/ELECTRIC HOIST OPERATOR, agreed w/resident/PA/ELECTRIC HOIST OPERATOR, reviewed EMR data (avail), reviewed images Attending Assessment/Plan: Patient seen and examined, agree with above. Patient presented with abdominal pain. Found to have gallstone pancreatitis with elevated LFTs. Underwent an ERCP which was negative for choledocholithiasis, sphincterotomy was done, cystic duct was patent. AVSS. Abd-soft, diffuse tenderness. WBC 20, LFTs lower but remain elevated. Patient still c/o significant abdominal pain, cont current mangement with IVF/NPO, would hold off Lap Marguerite until pain starts to improve/pancreatitis resolves. Will follow.
--- NOTE | 2018-01-26 23:47 | Admission Certification ---
Admission Certification Certification Statement - As attending physician, I certify that at the time of - admission, based on clinical presentation, severity of - symptoms, need for further diagnostic testing and - therapeutic interventions, and risk of adverse outcomes - without in-hospital treatment, in my clinical assessment, - this patient requires an acute hospital stay for a minimum - of two nights or longer. I have also considered psychsocial - factors such as support system, advanced age, financial - issues, cognitive issues, and failed out-patient treatments, - past re-admission history, safety of patient, and lack of - compliance as applicable. Specific rationale supporting this admission is: Gallstone pancreatitis with possible choledocholithiasis with cholangitis.
--- NOTE | 2018-01-26 23:47 | History & Physical ---
Trina Ram MD 01/26/18 9457: General Information and HPI MD Statement: I have seen and personally examined DARIEN ELIZABETH and documented this H&P. The patient is a 67 year old F who presented with a patient stated chief complaint of [left lower quadrant abdominal pain]. Source of Information: patient Exam Limitations: no limitations History of Present Illness: 67 years old female with past medical history of hypertension, GERD and COPD presents to the ED complaining of abdominal pain for 2 weeks which was getting progressively worse. This morning when it was severe pain 10/10 in severity, sharp left lower quadrant, radiates to the back initially intermittent then became constant and not related to food intake. Patient also endorses nausea, vomiting, dizziness, chills .She denies fever, diarrhea, dysuria or frequency. She also denies any chest pain or shortness of breath. Patient consumes alcohol occasionally, she is an ex-smoker used to smoke 1 pack per day and quit it 10 years ago. Patient denies any history of similar pain in the past or abdominal discomfort with fatty meals. She also denies any recent travel or sick contacts ED course: Vital signs: Blood pressure 158/70, pulse 77, respiratory 24, temperature 97.7, pulse ox 98 on room air Labs: WBC 8.6, hemoglobin 14.4, platelets 208, sodium 139, potassium 4.2, BUN 20 , creatinine 1, glucose 125, total bilirubin 4.6, direct 4.3.4, AST 310, AST 397 , alkaline phosphatase 332, CRP 12.7, amylase 1171, lipase more than 10,000 Urinalysis was normal Abdominal CT: 1. Cholelithiasis. 2. Peripancreatic stranding secondary to acute pancreatitis. No complications. 3.The common bile duct measures 8 mm in the region of the head of the pancreas. EKG: Sinus tachycardia Heart rate 111, QTC 441, no STT wave changes Allergies/Medications Allergies: Coded Allergies: No Known Allergies (01/26/18) Home Med list Albuterol Sulfate (Ventolin Hfa) 90 MCG HFA.AER.AD 2 PUF INH Q4-6 PRN PRN WHEEZE Fluticasone-Salmeterol (Advair 100-50 Diskus) 100 MCG-50 MCG/DOSE BLST.W.DEV 1 PUF INH BID COPD (Reported) Losartan/Hydrochlorothiazide (Hyzaar 100-12.5 Tablet) 100 MG-12.5 MG TABLET 1 TAB PO DAILY HEART (Reported) Omeprazole 40 MG CAPSULE.DR 1 CAP PO DAILY GI (Reported) Umeclidinium [place] (Incruse Ellipta) 62.5 MCG/ACTUATION BLST.W.DEV 1 PUFF PO DAILY BREATHING PROBLEMS (Reported) Past History Travel History Traveled to [place] past 21 day No Medical History Neurological: NONE EENT: NONE Cardiovascular: hypertension Respiratory: COPD Gastrointestinal: NONE Hepatic: NONE Renal: NONE Musculoskeletal: NONE Psychiatric: NONE Endocrine: NONE Blood Disorders: NONE Cancer(s): NONE 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 Cardiovascular: Denies: chest pain, edema, orthopena, palpitations. Respiratory: Denies: cough, hemoptysis, orthopnea, short of breath, sputum production. GI: Reports: abdominal pain, nausea, vomiting. Genitourinary: Denies: no symptoms. Musculoskeletal: Denies: no symptoms. Skin: Denies: no symptoms. Neurological/Psychological: Denies: no symptoms. Exam & Diagnostic Data Last 24 Hrs of Vital Signs/I&O Vital Signs Date Time Temp Pulse Resp B/P B/P Pulse O2 O2 Flow FiO2 Mean Ox Delivery Rate 01/26 2304 98.1 83 18 150/80 94 01/26 2237 97.8 79 18 170/78 96 Room Air 01/26 1952 97.7 77 24 158/70 98 01/26 1728 97.4 72 20 152/66 97 Room Air 01/26 1542 98.1 67 20 159/70 97 Room Air 01/26 1502 98.1 66 18 148/80 98 Room Air 01/26 1439 97 Room Air 01/26 1214 97.3 71 20 119/78 98 Room Air Intake & Output 01/27 0800 01/27 0000 01/26 1600 Intake Total 1000 Output Total Balance 1000 Intake, IV 1000 Patient 200 lb 210 lb Weight Weight Reported by Patient Reported by Patient Measurement Method Physical Exam General Appearance Alert, Oriented X3, Cooperative, No Acute Distress Skin No Rashes, No Breakdown, jaundice Skin Temp/Moisture Exam: Warm/Dry HEENT Atraumatic, PERRLA, EOMI, Mucous Membr. moist/pink, jaundice Neck Supple, No JVD Cardiovascular Normal S1, Normal S2, No Murmurs Lungs Clear to Auscultation, Normal Air Movement Abdomen Normal Bowel Sounds, Soft, +ve Leggett sign, LLQ tenderness Neurological Normal Speech, Strength at 5/5 X4 Ext, Normal Tone Extremities No Clubbing, No Cyanosis, No Edema Vascular Normal Pulses Sepsis Peripheral Pulse Location: Radial Last 24 Hrs of Labs/[place]: Laboratory Tests 01/26/18 1709: Lactic Acid Cancelled 01/26/18 1656: Urine Color YEL, Urine Clarity CLEAR, Urine pH 6.0, Ur Specific [place] 1.020, Urine Protein NEG, Urine Ketones NEG, Urine Nitrite NEG, Urine Bilirubin NEG@ ICTO, Urine Urobilinogen 1.0, Ur Leukocyte Esterase NEG, Ur Microscopic EXAM NOT REQUIRED, Urine Hemoglobin NEG, Urine Glucose NEG 01/26/18 1426: CBC w Diff NO MAN DIFF REQ, RBC 4.67, MCV 90.9, MCH 30.9, MCHC 33.9, RDW 15.6 H , MPV 8.9, Gran % 80.1 H, Lymphocytes % 9.8 L, Monocytes % 7.2, Eosinophils % 2.4, Basophils % 0.5, Absolute Granulocytes 6.9 H, Absolute Lymphocytes 0.8 L, Absolute Monocytes 0.6, Absolute Eosinophils 0.2, Absolute Basophils 0 01/26/18 1409: Anion Gap 11, Estimated GFR 55 L, BUN/Creatinine Ratio 20.0, Glucose 125 H, Lactic Acid 1.7, Calcium 9.9, Total Bilirubin 4.6 H, Direct Bilirubin 3.4 H, AST 310 H, ALT 397 H, Alkaline Phosphatase 332 H, C-React Prot High Sens 12.7 H, Total Protein 7.6, Albumin 4.2, Globulin 3.4, Albumin/Globulin Ratio 1.2, Triglycerides 71, Amylase 1171 H, Lipase > 79767 H 01/26/18 1346: Sodium Cancelled, Potassium Cancelled, Chloride Cancelled, Carbon Dioxide Cancelled, Anion Gap Cancelled, BUN Cancelled, Creatinine Cancelled, BUN/ Creatinine Ratio Cancelled, Glucose Cancelled, Calcium Cancelled, Total Bilirubin Cancelled, AST Cancelled, ALT Cancelled, Alkaline Phosphatase Cancelled, Total Protein Cancelled, Albumin Cancelled, Globulin Cancelled, Albumin/Globulin Ratio Cancelled, Amylase Cancelled, Lipase Cancelled Microbiology 01/27 0014 BLOOD: Blood Culture - ORD 01/27 0006 BLOOD: Blood Culture - ORD Diagnostic Data EKG Results Sinus tachycardia Heart rate 111, QTC 441, no STT wave changes Other Results Abdominal CT: 1. Cholelithiasis. 2. Peripancreatic stranding secondary to acute pancreatitis. No complications. 3.The common bile duct measures 8 mm in the region of the head of the pancreas. Assessment/Plan Assessment: 67 years old female with past medical history of hypertension, GERD and COPD presents to the ED complaining of abdominal pain for 2 weeks which was getting progressively worse. This morning when it was severe pain 10/10 in severity, sharp left lower quadrant, radiates to the back initially intermittent then became constant and not related to food intake. Patient also endorses nausea, vomiting, dizziness, chills .She denies fever, diarrhea, dysuria or frequency. She also denies any chest pain or shortness of breath. Patient consumes alcohol occasionally, she is an ex-smoker used to smoke 1 pack per day and quit it 10 years ago. #Acute gall stone Pancreatitis/ Cholilithiasis with possible cholangitis labs Significant for markedly elevated lipase and arthritis in addition to increased direct and total bilirubin and alkaline phosphatase CT abdomen showed cholelithiasis and mild common bile duct dilatation (8 mm) surgery saw the patient in the ED and he recommended GI consult for ERCP, will reevaluate the patient for cholecystectomy Admitted to general medicine floor Nothing by mouth IV hydration with lactated Ringer 200 mL/h Start IV Protonix 40 mg daily Continue IV Unasyn Pain control with IV morphine U/S abdomen Lipid panel EKG to evaluate QTC IV Zofran when necessary for nausea and vomiting GI consult appreciated Surgery consult appreciated Vitals every shift #Chronic medical conditions including hypertension and COPD TRC/NEBS hold Hydrochlorothiazide We will continue other home meds DVT prophylaxis with subcutaneous Lovenox Full code NPO As Ranked By This Provider Problem List: 1. COPD 2. Gallstone pancreatitis Core Measures/Misc (08/17) Acute Coronary Syndrome ACS Diagnosis: No Congestive Heart Failure Congestive Heart Failure Diagnosis No Cerebrovascular Accident CVA/TIA Diagnosis: No VTE (View Protocol) VTE Risk Factors Age>40 No Mechanical VTE Prophylaxis d/t N/A MechProphylax Ordered No VTE Pharm Prophylaxis d/t NA PharmProphylax ordered Sepsis (View protocol) Sepsis Present: No Waldo Dodd 01/27/18 0137: Resident Review Statement Resident Statement: examined this patient, discussed with software engineer intern, agreed with software engineer intern, reviewed EMR data (avail), discussed with nursing, discussed with case mgmt, reviewed images, amended to note Other Findings: This is 67-year-old female with history of COPD not on home oxygen, HTN, GERD, Atrophic gastritis and nonerosive duodenitis. Presented to the emergency department with a chief complaint of abdominal pain for the past 2 week. Patient states the pain has been gradually worsening and is currently severe, 8/10, worse with movement, associated with nausea and she reports vomiting once in the emergency department. Patient reports some skin yellowish discoloration exacerbation. Patient also reports some chills no fever. Patient has no history of a similar abdominal pain. . Patient reports being very thirsty. Last bowel movement was this morning and normal. Patient reports occasional alcohol use once to twice per month. She is a former smoker quit 10 years ago she smoked for 30 years one pack per day. Patient still complaining of abdominal pain. Patient deny any hematuria, dysuria, chest pain, shortness of breath, wheezing, cough, bruises, recent weight change. Problem list: -Acute pancreatitis most likely secondary to gallstone -Cholelithiasis with dilated bile duct/acute cholangitis -Transaminitis/elevated bilirubin Plan: -Admit patient to general medicine floor -Vitals every shift -Continue IV Unasyn antibiotic -Start IV Protonix 40 mg daily -Aggressive IV fluid hydration of lactated Ringer at 200 mL per hour -Keep patient nothing by mouth allow ice chips only -Adequate pain medication with IV morphine -Obtain EKGs to evaluate QTC, IV Zofran as needed for nausea and vomiting -Gastroenterology consultation in a.m. -Obtain abdominal ultrasound for further evaluation -Gen. surgery consultation appreciated -TRC nebs as needed continue home inhalers -Hold off hydrochlorothiazide, continue home medication -Pain pathway -DVT prophylaxis: subcutaneous Lovenox -Full code [place] [facility], [facility] 01/27/18 0440: Attending MD Review Statement Attending Statement Attending MD Statement: examined this patient, discuss w/resident/PA/MANAGER ENVIRONMENTAL, agreed w/resident/PA/MANAGER ENVIRONMENTAL, reviewed images, amended to note Attending Assessment/Plan: 67 yo F with h/o HTN, COPD, depression, is here with 2-week h/o intermittent mid to left sided sharp abdominal pain radiating to the back, associated with nausea and chills. Symptoms have worsened and are persistent since last night hence she came to the ER. She vomited after coming to the ER. She has had a poor appetite, not able to keep anything down, reports feeling thirsty. No diarrhea, last BM was this morning. No similar pain episodes in the past. Occasional alcohol use. EGD (2016): nonerosive reflux disease, hiatal hernia, atrophic gastritis and nonerosive duodenitis, biopsy reveals mild chronic duodenitis/ gastritis Colonoscopy (2012): colon polyps (tubular adenoma), small internal hemorrhoids. Vitals stable. Exam as above. Labs: no leukocytosis, BUN 20, lactic acid 1.7, T. Bili 4.6, D. Bili 3.4, AST 310, ALT 397, Alk phos 332, CRP 12.7, lipase >[address]. U[address] abd/pelvis: cholelithiasis, mild dilataation of intrahepatic biliary ducts, CBD measures 8 mm, peripancreatic stranding s/o pancreatitis. Assessment and plan: 1. Acute gallstone pancreatitis 2. Cholelithiasis 3. Possible choledocholithiasis (biliary dilatation on imaging) with acute cholangitis 4. Essential hypertension - Admit to general medicine - TRC nebs - Panculture - Check urine tox screen, alcohol level and lipid panel - NPO - IV fluids LR @ 200/hour - Pain management with morphine - IV Unasyn empirically for cholangitis - IV PPI - RUQ ultrasound in AM - GI consult ?MRCP (not available on Friday) vs ERCP - Obtain baseline EKG - Surgery consulted by ER eventual cholecystectomy - Hold losartan-HCTZ DVT ppx Hep SC. Full code.
[2018-01-27 06:22] VITALS: BP 140/80
--- NOTE | 2018-01-27 07:03 | PN- Housestaff ---
Petrona MCCRARY,Nahum 01/27/18 0702: Subjective Follow-up For: Gallstone pancreatitis Subjective: Patient was seen and examined at bedside. She is in moderate to severe distress secondary to abdominal pain. She had no acute events overnight. Her nausea has improved reports no further episodes of emesis. She presents that her pain is most severe in the left lower quadrant, is 10/10, radiates to the back. She denies any chest pain, shortness of breath, fever, chills, diarrhea, changes in stool. Review of Systems Constitutional: Denies: chills, diaphoresis, fever. EENTM: Reports: no symptoms. Cardiovascular: Denies: chest pain, palpitations. Respiratory: Denies: cough, short of breath. Gastrointestinal: Reports: abdominal pain. Denies: diarrhea, nausea, vomiting. Genitourinary: Reports: no symptoms. Musculoskeletal: Reports: no symptoms. Objective Last 24 Hrs of Vital Signs/I&O Vital Signs Date Time Temp Pulse Resp B/P B/P Pulse O2 O2 Flow FiO2 Mean Ox Delivery Rate 01/27 0622 98.1 82 20 140/80 92 Room Air 01/26 2304 98.1 83 18 150/80 94 01/26 2237 97.8 79 18 170/78 96 Room Air 01/26 1952 97.7 77 24 158/70 98 01/26 1728 97.4 72 20 152/66 97 Room Air 01/26 1542 98.1 67 20 159/70 97 Room Air 01/26 1502 98.1 66 18 148/80 98 Room Air 01/26 1439 97 Room Air 01/26 1214 97.3 71 20 119/78 98 Room Air Intake & Output 01/27 0800 01/27 0000 01/26 1600 Intake Total 1400 1000 Output Total Balance 1400 1000 Intake, IV 1340 1000 Intake, Oral 60 Number 0 Bowel Movements Patient 200 lb 210 lb Weight Weight Reported by Patient Reported by Patient Measurement Method Physical Exam General Appearance: Alert, Oriented X3, Cooperative, Severe Distress Skin Temp/Moisture Exam: Warm/Dry HEENT: Atraumatic, PERRLA, EOMI, slightly dry mucous membranes Cardiovascular: Regular Rate, Normal S1, Normal S2 Lungs: Clear to Auscultation, Normal Air Movement Abdomen: decreased bowel sounds, TTP of RUQ, epigastric, umbilical, LLQ , positive manzanares's sign Neurological: Normal Speech, Sensation Intact Extremities: No Clubbing, No Cyanosis, No Edema Vascular: Normal Pulses, Pulses Symmetrical Current Medications: Current Medications Sig/[place] Start time Last Medication Dose Route Stop Time Status Admin Albuterol Sulfate 2 PUF Q4-6 PRN PRN 01/27 0200 AC INH Ampicillin Sodium/ 3,000 MG Q6H 01/27 0430 AC 01/27 Sulbactam Sodium IV 0442 Sodium Chloride 100 ML Ampicillin Sodium/ 0 .STK-MED ONE 01/26 2226 DC Sulbactam Sodium .ROUTE Ampicillin Sodium/ 1,500 MG ONCE ONE 01/26 2145 DC 01/26 Sulbactam Sodium IV 01/26 2214 2226 Sodium Chloride 100 ML Enoxaparin Sodium 40 MG DAILY 01/27 1000 AC 01/27 SC 0802 Fluticasone 2 PUF BID 01/27 0152 AC 01/27 Propionate INH 0805 Lactated Ringer's 1,000 ML .Q5H 01/27 0015 AC 01/27 IV 01/27 1014 0548 Losartan Potassium 100 MG DAILY 01/27 1000 CAN PO Metoclopramide HCl 0 .STK-MED ONE 01/26 1835 DC .ROUTE Metoclopramide HCl 10 MG ONCE ONE 01/26 1830 DC 01/26 IV 01/26 1831 1836 Morphine Sulfate 4 MG Q4-6 PRN PRN 01/27 0745 AC 01/27 IV 0805 Morphine Sulfate 2 MG Q4P PRN 01/27 0015 DC 01/27 IV 0426 Morphine Sulfate 4 MG .STK-MED ONE 01/26 2349 DC IM 01/26 2350 Morphine Sulfate 2 MG ONCE ONE 01/26 2345 DC 01/26 IV 01/26 2346 2353 Morphine Sulfate 0 .STK-MED ONE 01/26 1950 DC .ROUTE Morphine Sulfate 4 MG ONCE ONE 01/26 1945 DC 01/26 IV 01/26 1946 1950 Morphine Sulfate 4 MG ONCE ONE 01/26 1545 DC 01/26 IV 01/26 1546 1539 Morphine Sulfate 0 .STK-MED ONE 01/26 1541 DC .ROUTE Morphine Sulfate 4 MG ONCE ONE 01/26 1445 DC 01/26 IV 01/26 1446 1437 Morphine Sulfate 0 .STK-MED ONE 01/26 1438 DC .ROUTE Ondansetron HCl 4 MG Q6P PRN 01/27 2345 AC IV Ondansetron HCl 4 MG ONCE ONE 01/26 1545 DC 01/26 IV 01/26 1546 1539 Ondansetron HCl 0 .STK-MED ONE 01/26 1541 DC .ROUTE Ondansetron HCl 0 .STK-MED ONE 01/26 1439 DC .ROUTE Ondansetron HCl 4 MG ONCE ONE 01/26 1430 DC 01/26 IV 01/26 1431 1438 Pantoprazole Sodium 40 MG DAILY 01/27 0015 AC 01/27 IV 0127 Sodium Chloride 1,000 ML BOLUS ONE 01/26 1530 DC 01/26 IV 01/26 1629 1529 Tiotropium [place] 1 PUF DAILY 01/27 1000 AC 01/27 INH 0805 Last 24 Hrs of Lab/[place] Results Last 24 Hrs of Labs/Mics: Laboratory Tests 01/26/18 1709: Lactic Acid Cancelled 01/26/18 1656: Urine Color YEL, Urine Clarity CLEAR, Urine pH 6.0, Ur Specific [place] 1.020, Urine Protein NEG, Urine Ketones NEG, Urine Nitrite NEG, Urine Bilirubin NEG@ ICTO, Urine Urobilinogen 1.0, Ur Leukocyte Esterase NEG, Ur Microscopic EXAM NOT REQUIRED, Urine Hemoglobin NEG, Urine Glucose NEG 01/26/18 1426: CBC w Diff NO MAN DIFF REQ, RBC 4.67, MCV 90.9, MCH 30.9, MCHC 33.9, RDW 15.6 H , MPV 8.9, Gran % 80.1 H, Lymphocytes % 9.8 L, Monocytes % 7.2, Eosinophils % 2.4, Basophils % 0.5, Absolute Granulocytes 6.9 H, Absolute Lymphocytes 0.8 L, Absolute Monocytes 0.6, Absolute Eosinophils 0.2, Absolute Basophils 0 01/26/18 1409: Anion Gap 11, Estimated GFR 55 L, BUN/Creatinine Ratio 20.0, Glucose 125 H, Lactic Acid 1.7, Calcium 9.9, Total Bilirubin 4.6 H, Direct Bilirubin 3.4 H, AST 310 H, ALT 397 H, Alkaline Phosphatase 332 H, C-React Prot High Sens 12.7 H, Total Protein 7.6, Albumin 4.2, Globulin 3.4, Albumin/Globulin Ratio 1.2, Triglycerides 71, Amylase 1171 H, Lipase > 68104 H 01/26/18 1346: Sodium Cancelled, Potassium Cancelled, Chloride Cancelled, Carbon Dioxide Cancelled, Anion Gap Cancelled, BUN Cancelled, Creatinine Cancelled, BUN/ Creatinine Ratio Cancelled, Glucose Cancelled, Calcium Cancelled, Total Bilirubin Cancelled, AST Cancelled, ALT Cancelled, Alkaline Phosphatase Cancelled, Total Protein Cancelled, Albumin Cancelled, Globulin Cancelled, Albumin/Globulin Ratio Cancelled, Amylase Cancelled, Lipase Cancelled Microbiology 01/27 0014 BLOOD: Blood Culture - COLB 01/27 0006 BLOOD: Blood Culture - COLB Assessment/Plan Assessment: Patient is a 67-year-old female with a PMH significant for HTN, GERD, and COPD who presented complaining of approximately 2 week history of abdominal pain which increased in intensity the night prior to admission. On presentation she complained of 10/10 abdominal pain radiating to her back. She had associated nausea, chills, and episode of emesis in the ED. She had also had poor appetite. She denies any diarrhea or changes to her stool. She endorsed occasional alcohol use. #Gallstone pancreatitis CT abdomen and pelvis shows closely lithiasis with mild dilatation of intrahepatic biliary ducts and the common bile duct measuring 8 mm, with peripancreatic stranding. Total bilirubin increased from 4.6 on presentation to 6.9 today. Patient also has leukocytosis. After discussion with Dr. Godwin, GI, we will plan for ERCP for decompression later this afternoon. -Keep nothing by mouth for ERCP this afternoon -Continue aggressive fluid rehydration -Continue adequate pain management with IV morphine -Follow-up abdominal ultrasound -Check INR prior to ERCP -Continue IV Unasyn for possible cholangitis given leukocytosis -Continue IV Zofran for nausea #Chronic medical problems including COPD, HTN, GERD -Continue TRC/nebs -Continue holding hydralazine -Continue rest of medications Problem List: 1. Gallstone pancreatitis Pain Ratin Pain Location: abdomen Pain Goal: Pain 4 or less Pain Plan: increase scheduled morphine from 2mg q4p to 4mg q4-6p Tomorrow's Labs & Rationales: cbc, bep, LFTs Isha Briseno MD 01/27/18 1425: Attending MD Review Statement Attending Statement Attending MD Statement: examined this patient, discuss w/resident/PA/GAMING DIRECTOR, agreed w/resident/PA/GAMING DIRECTOR, reviewed EMR data (avail) Attending Assessment/Plan: 67F PMH HTN, COPD with 2 weeks of progressive intermittent epigastric pain, with 2 days of nausea and vomiting, found to have gallstone pancreatitis by labs and imaging. Still in pain, improves with Morphine. Difficult IV access, now has a line in forearm but if fails may require CVC. Afebrile, hemodynamically stable, no signs of cholangitis. 1. Gallstone pancreatitis 2. Cholelithiasis 3. Obstructive jaundice Plan - Continue on general medicine - NPO - ERCP in afternoon - Continue IV fluids - Continue Morphine, may increase to q3h if pain is not improved - Follow GI and surgery recommendations - DVT PPx
[2018-01-27 08:30] LABS: ABSOLUTE BASOPHIL COUNT 0 /CUMM (0.0-0.2); ABSOLUTE LYMPH COUNT 0.7 /CUMM (1.2-3.4); RED BLOOD CELL CT 4.34 /CUMM (4.20-5.40)
[2018-01-27 08:55] LABS: ABSOLUTE EOSINOPHIL COUNT 0.1 /CUMM (0.0-0.7); ABSOLUTE GRANULOCYTE CT 12.6 /CUMM (1.4-6.5); BASOPHIL % 0.1 % (0.0-2.0); EOSINOPHIL % 0.4 % (0-5); MEAN CORPUSCULAR HGB CONC 33.7 G/DL (33.0-37.0); MEAN CORPUSCULAR VOLUME 92.1 FL (81.0-99.0); MEAN PLATELET VOLUME 9.7 FL (7.4-10.4); PLATELET COUNT 207 /CUMM (130-400); RBC DISTRIBUTION WIDTH 16.2 % (11.5-14.5)
[2018-01-27 08:58] LABS: WHITE BLOOD CELL COUNT 14.4 /CUMM (4.8-10.8)
[2018-01-27 09:18] LABS: GRANULOCYTE % 87.8 % (42.2-75.2)
--- NOTE | 2018-01-27 09:42 | Cons- Gastroenterology ---
General Information and HPI Consulting Request Date of Consult: 01/27/18 Requested By: Isha Briseno MD Reason for Consult: Gallstone pancreatitis, increased LFTs. Source of Information: patient Exam Limitations: clinical condition History of Present Illness: Ms. López is a 67 year old female with a history of GERD and HTN who presented to complaining of a few weeks of abdominal pain which became severe yesterday morning. She notes that she has been having mid-epigastric to RUQ pain intermittently for the past few weeks and then yesterday the pain became severe radiating to her back and was associated with bilious vomiting without hematemesis. She denies having similar symptoms like this in the past. She has not been having any high fevers and she denies any january colored stool or dark urine. The pain she is having has been radiating to her back. Prior to two weeks ago she had been feeling well. In the ER she was afebrile and hemodynamically stable. She was noted to have an increased bilirubin, transaminases and a lipase was > 10,[address] done showed changes of pancreatitis, gallstones and borderline biliary ductal dilatation, but no obvious choledocolithiasis. She was admitted to the medical service was kept NPO, given lactated ringers at a rate of 200 cc/hour and IV morphine for pain control. She was also started on IV protonix and IV unasyn. She remained afebrile and hemodynamically stable overnight, but continues to have diffuse abdominal pain. Allergies/Medications Allergies: Coded Allergies: No Known Allergies (01/26/18) Home Med List: Albuterol Sulfate (Ventolin Hfa) 90 MCG HFA.AER.AD 2 PUF INH Q4-6 PRN PRN WHEEZE Fluticasone-Salmeterol (Advair 100-50 Diskus) 100 MCG-50 MCG/DOSE BLST.W.DEV 1 PUF INH BID COPD (Reported) Losartan/Hydrochlorothiazide (Hyzaar 100-12.5 Tablet) 100 MG-12.5 MG TABLET 1 TAB PO DAILY HEART (Reported) Omeprazole 40 MG CAPSULE.DR 1 CAP PO DAILY GI (Reported) Ondansetron (Zofran Odt) 4 MG TAB.RAPDIS 1 TAB SL TID PRN nausea . Oxycodone HCl/Acetaminophen (Percocet 5-325 MG Tablet) 5 MG-325 MG TABLET 1 TAB PO Q6-PRN PRN post op pain . Umeclidinium [place] (Incruse Ellipta) 62.5 MCG/ACTUATION BLST.W.DEV 1 PUFF PO DAILY BREATHING PROBLEMS (Reported) Current Medications: Current Medications Sig/Stefany Start time Last Medication Dose Route Stop Time Status Admin Albuterol Sulfate 2 PUF Q4-6 PRN PRN 01/27 0200 AC INH Ampicillin Sodium/ 3,000 MG Q6H 01/27 0430 AC 01/27 Sulbactam Sodium IV 0442 Sodium Chloride 100 ML Ampicillin Sodium/ 0 .STK-MED ONE 01/26 2226 DC Sulbactam Sodium .ROUTE Ampicillin Sodium/ 1,500 MG ONCE ONE 01/26 2145 DC 01/26 Sulbactam Sodium IV 01/264 2226 Sodium Chloride 100 ML Enoxaparin Sodium 40 MG DAILY 01/27 1000 AC SC Fluticasone 2 PUF BID 01/27 0152 AC Propionate INH Lactated Ringer's 1,000 ML .Q5H 01/27 0015 AC 01/27 IV 01/27 1014 0548 Losartan Potassium 100 MG DAILY 01/27 1000 CAN PO Metoclopramide HCl 0 .STK-MED ONE 01/26 1835 DC .ROUTE Metoclopramide HCl 10 MG ONCE ONE 01/26 1830 DC 01/26 IV 01/26 1831 1836 Morphine Sulfate 4 MG Q4-6 PRN PRN 01/27 0745 AC IV Morphine Sulfate 2 MG Q4P PRN 01/27 0015 DC 01/27 IV 0426 Morphine Sulfate 4 MG .STK-MED ONE 01/26 2349 DC IM 01/26 2350 Morphine Sulfate 2 MG ONCE ONE 01/26 2345 DC 01/26 IV 01/26 2346 2353 Morphine Sulfate 0 .STK-MED ONE 01/26 1950 DC .ROUTE Morphine Sulfate 4 MG ONCE ONE 01/26 1945 DC 01/26 IV 01/26 1946 1950 Morphine Sulfate 4 MG ONCE ONE 01/26 1545 DC 01/26 IV 01/26 1546 1539 Morphine Sulfate 0 .STK-MED ONE 01/26 1541 DC .ROUTE Morphine Sulfate 4 MG ONCE ONE 01/26 1445 DC 01/26 IV 01/26 1446 1437 Morphine Sulfate 0 .STK-MED ONE 01/26 1438 DC .ROUTE Ondansetron HCl 4 MG Q6P PRN 01/27 2345 AC IV Ondansetron HCl 4 MG ONCE ONE 01/26 1545 DC 01/26 IV 01/26 1546 1539 Ondansetron HCl 0 .STK-MED ONE 01/26 1541 DC .ROUTE Ondansetron HCl 0 .STK-MED ONE 01/26 1439 DC .ROUTE Ondansetron HCl 4 MG ONCE ONE 01/26 1430 DC 01/26 IV 01/26 1431 1438 Pantoprazole Sodium 40 MG DAILY 01/27 0015 AC 01/27 IV 0127 Sodium Chloride 1,000 ML BOLUS ONE 01/26 1530 DC 01/26 IV 01/26 1629 1529 Tiotropium [place] 1 PUF DAILY 01/27 1000 AC INH Past History Travel History Traveled to [place] past 21 day No Medical History Blood Transfusion Hx: No Neurological: NONE EENT: NONE Cardiovascular: hypertension Respiratory: COPD Gastrointestinal: NONE Hepatic: NONE Renal: NONE Musculoskeletal: NONE Psychiatric: NONE Endocrine: NONE Blood Disorders: NONE Cancer(s): NONE HEEL TRIMMER/Reproductive: NONE Surgical History Surgical History: R SHOULDER SURGERY 2017 Family History Relations & Conditions If Any: Relation not specified for: *No pertinent family history Psychosocial History Where Do You Live? Home Services at Home: None Smoking Status: Former Smoker ETOH Use: denies use Illicit Drug Use: denies illicit drug use Review of Systems Review of Systems Constitutional: Denies: fever, malaise, weakness, unexplained weight loss. EENTM: Denies: no symptoms. Cardiovascular: Denies: no symptoms. Respiratory: Denies: no symptoms. GI: Reports: see HPI. Genitourinary: Denies: no symptoms. Musculoskeletal: Denies: no symptoms. Skin: Denies: no symptoms. Neurological/Psychological: Denies: no symptoms. Hematologic/Endocrine: Denies: no symptoms. Immunologic/Allergic: Denies: no symptoms. All Other Systems: Reviewed and Negative Exam & Diagnostic Data Vital Signs and I&O Vital Signs Date Time Temp Pulse Resp B/P B/P Pulse O2 O2 Flow FiO2 Mean Ox Delivery Rate 01/27 0622 98.1 82 20 140/80 92 Room Air 01/26 2304 98.1 83 18 150/80 94 01/26 2237 97.8 79 18 170/78 96 Room Air 01/26 1952 97.7 77 24 158/70 98 01/26 1728 97.4 72 20 152/66 97 Room Air 01/26 1542 98.1 67 20 159/70 97 Room Air 01/26 1502 98.1 66 18 148/80 98 Room Air 01/26 1439 97 Room Air 01/26 1214 97.3 71 20 119/78 98 Room Air Intake & Output 01/27 1600 01/27 0400 01/26 1600 01/26 0400 01/25 1600 01/25 0400 Intake Total 1400 1000 Output Total Balance 1400 1000 Intake, IV 1340 1000 Intake, Oral 60 Number 0 Bowel Movements Patient 200 lb 210 lb Weight Weight Reported by Patient Reported by Patient Measurement Method Physical Exam General Appearance: well developed/nourished, awake, moderate distress Head: atraumatic, normal appearance Eyes: Bilateral: normal appearance. Ears, Nose, Throat: normal pharynx, normal ENT inspection Neck: normal inspection, supple, full range of motion Respiratory: normal breath sounds, chest non-tender, no respiratory distress, quiet respiration Cardiovascular: regular rate/rhythm Gastrointestinal: normal bowel sounds, soft, guarding, tenderness Rectal: deferred Back: normal inspection, normal range of motion Extremities: normal inspection, normal capillary refill, normal range of motion, no edema Neurologic/Psych: no motor/sensory deficits, awake, alert, oriented x 3 Skin: intact, normal color, warm/dry Results Pertinent Lab Results: Laboratory Tests 01/27 01/26 01/26 0722 1709 1656 Chemistry Sodium Pending Potassium Pending Chloride Pending Carbon Dioxide Pending Anion Gap Pending BUN Pending Creatinine Pending BUN/Creatinine Ratio Pending Lactic Acid Cancelled Total Bilirubin Pending Direct Bilirubin Pending AST Pending ALT Pending Alkaline Phosphatase Pending Total Protein Pending Albumin Pending Triglycerides Pending Cholesterol Pending LDL Cholesterol, Calc Pending HDL Cholesterol Pending Cholesterol/HDL Ratio Pending Hematology CBC w Diff Pending WBC Pending RBC Pending Hgb Pending Hct Pending MCV Pending MCH Pending MCHC Pending RDW Pending Plt Count Pending MPV Pending Toxicology Serum Alcohol Pending Urines Urine Color (YEL,AMB,STR) YEL Urine Clarity (CLEAR) CLEAR Urine pH (5.0 - 8.0) 6.0 Ur Specific [place] (1.001 - 1.035) 1.020 Urine Protein (NEG,<30 MG/DL) NEG Urine Ketones (NEG) NEG Urine Nitrite (NEG) NEG Urine Bilirubin (NEG) NEG@ICTO Urine Urobilinogen (0.1 - 1.0 EU/dl) 1.0 Ur Leukocyte Esterase (NEG) NEG Ur Microscopic EXAM NOT REQUIRED Urine Hemoglobin (NEG) NEG Urine Glucose (N MG/DL) NEG 01/26 01/26 1426 1409 Chemistry Sodium (137 - 145 mmol/L) 139 Potassium (3.5 - 5.1 mmol/L) 4.2 Chloride (98 - 107 mmol/L) 102 Carbon Dioxide (22 - 30 mmol/L) 26 Anion Gap (5 - 16) 11 BUN (7 - 17 mg/dL) 20 H Creatinine (0.5 - 1.0 mg/dL) 1.0 Estimated GFR (>60 ml/min) 55 L BUN/Creatinine Ratio (7 - 25 %) 20.0 Glucose (65 - 99 mg/dL) 125 H Lactic Acid (0.7 - 2.1 mmol/L) 1.7 Calcium (8.4 - 10.2 mg/dL) 9.9 Total Bilirubin (0.2 - 1.3 mg/dL) 4.6 H Direct Bilirubin (< 0.4 mg/dL) 3.4 H AST (14 - 36 U/L) 310 H ALT (9 - 52 U/L) 397 H Alkaline Phosphatase (<127 U/L) 332 H C-React Prot High Sens (1.0 - 3.0 mg/L) 12.7 H Total Protein (6.3 - 8.2 g/dL) 7.6 Albumin (3.5 - 5.0 g/dL) 4.2 Globulin (1.9 - 4.2 gm/dL) 3.4 Albumin/Globulin Ratio (1.1 - 2.2 %) 1.2 Triglycerides (<150 mg/dL) 71 Amylase (30 - 110 U/L) 1171 H Lipase (23 - 300 U/L) > 72942 H Hematology CBC w Diff NO MAN DIFF REQ WBC (4.8 - 10.8 /CUMM) 8.6 RBC (4.20 - 5.40 /CUMM) 4.67 Hgb (12.0 - 16.0 G/DL) 14.4 Hct (37 - 47 %) 42.5 MCV (81.0 - 99.0 FL) 90.9 MCH (27.0 - 31.0 PG) 30.9 MCHC (33.0 - 37.0 G/DL) 33.9 RDW (11.5 - 14.5 %) 15.6 H Plt Count (130 - 400 /CUMM) 208 MPV (7.4 - 10.4 FL) 8.9 Gran % (42.2 - 75.2 %) 80.1 H Lymphocytes % (20.5 - 51.1 %) 9.8 L Monocytes % (1.7 - 9.3 %) 7.2 Eosinophils % (0 - 5 %) 2.4 Basophils % (0.0 - 2.0 %) 0.5 Absolute Granulocytes (1.4 - 6.5 /CUMM) 6.9 H Absolute Lymphocytes (1.2 - 3.4 /CUMM) 0.8 L Absolute Monocytes (0.10 - 0.60 /CUMM) 0.6 Absolute Eosinophils (0.0 - 0.7 /CUMM) 0.2 Absolute Basophils (0.0 - 0.2 /CUMM) 0 01/26 1346 Chemistry Sodium Cancelled Potassium Cancelled Chloride Cancelled Carbon Dioxide Cancelled Anion Gap Cancelled BUN Cancelled Creatinine Cancelled BUN/Creatinine Ratio Cancelled Glucose Cancelled Calcium Cancelled Total Bilirubin Cancelled AST Cancelled ALT Cancelled Alkaline Phosphatase Cancelled Total Protein Cancelled Albumin Cancelled Globulin Cancelled Albumin/Globulin Ratio Cancelled Amylase Cancelled Lipase Cancelled Imaging/Other Studies: SERVICE DATE: 01/26/18 EXAM TYPE: CAT - CT ABD & PELVIS W IV CONTRAST EXAMINATION: CT ABDOMEN AND PELVIS WITH CONTRAST CLINICAL INFORMATION: 67-year-old female with left-sided abdominal pain for 2 weeks. Elevated bilirubin and LFTs. COMPARISON: CT of the abdomen and pelvis on 09/22/2016. (Cholelithiasis). TECHNIQUE: Multidetector volumetric imaging was performed of the abdomen and pelvis following IV administration of 95 mL of Optiray 320 intravenous contrast. Sagittal and coronal reformatted images were obtained on the technologist's workstation. DLP: 515 mGy-cm FINDINGS: FILLER SHREDDING MACHINE LOADER: Noncontributory. LUNG BASES: The visualized lung bases are unremarkable. LIVER, GALLBLADDER, AND BILIARY TREE: The liver is normal in size, contour, and attenuation. There is mild dilatation of the intrahepatic biliary ducts. The common bile duct measures 8 mm in the region of the head of the pancreas. Small stones are present in the gallbladder. The stones are located in the gallbladder body and proximal portion of the gallbladder lumen. Gallbladder wall is of average thickness measuring 2 mm. No pericholecystic fluid or surrounding inflammatory reaction is seen. PANCREAS: The pancreas is normal in size but there is evidence of peripancreatic stranding diagnostic of early pancreatitis. No complications are seen. No large effusions are present. SPLEEN: Unremarkable. ADRENAL GLANDS: Unremarkable. KIDNEYS AND URETERS: The kidneys are normal in size, shape, and attenuation. No hydronephrosis, hydroureter, or calculi seen. No perinephric stranding. BLADDER: Empty. GASTROINTESTINAL TRACT: Diverticula are seen in the sigmoid colon. There is no evidence of diverticulitis. The appendix is normal. ABDOMINAL WALL: No significant hernia is appreciated. LYMPH NODES: Normal. VASCULAR: Unremarkable. PELVIC VISCERA: Uterus is retroverted and normal in size. No free fluid is seen. OSSEOUS STRUCTURES: Disc disease L4-L5. There is evidence of a free disc fragment posterior to L5. IMPRESSION: 1. Cholelithiasis. 2. Peripancreatic stranding secondary to acute pancreatitis. No complications. Assessment/Plan Assessment/Recommendations: Assessment: Ms. López is a 67 year old female who presents with symptoms of biliary colic for the past few weeks and the acute exacerbation of her symptoms are likely secondary to a passed gallstone leading to gallstone pancreatitis. Her ct scan showed borderline biliary ductal dilatation so if her bilirubin doesn't improve she will then likely require an ERCP, but as she is currently without signs of cholangitis (afebrile and no significant elevation of her WBC) this isn't urgent. Furthermore, if her bilirubin improves this morning it may not be necessary. She continues to be in a significant amount of pain which I feel is just likely secondary to her pancreatitis. She will ultimately need a cholecystectomy as well to prevent any future attacks the timing of which I will defer to surgery for. Recommendations: 1. Keep NPO. 2. Continue IVF hydration with lactated ringers at 200 cc/hr and reassess volume status after 24-48 hours. 3. Analgesia as needed 4. Follow up am LFTs and check a stat INR in case an ERCP with sphincterotomy is needed. 5. Continue unasyn for now, but if it appears she passed a gallstone on repeat labs or imaging it may be reasonable to stop that as she is without any obvious cholecystitis on current imaging. 6. If am bilirubin remains elevated or is increasing will then arrange for an ERCP later today or tomorrow. 7. If am bilirubin improved would then recommend further imaging with an MRCP. 8. Notify GI for signs of cholangititis, high fevers, inc wbc etc in which case an ERCP may be expedited. I will continue to follow this patient and make further recommendations based on her clinical course and repeat blood work and any additional imaging may be obtained. Problem List: 1. Abdominal pain 2. Gallstone pancreatitis Copies To: Kane MCCRARY,Cecil Huizar. Consult Acknowledgment - Thank you for your consult request.
--- NOTE | 2018-01-27 11:30 | PN- General Surgery ---
Subjective Subjective: Patient reports persistent nausea, abdominal pain that radiates around her back. She points to pain in her left lower quadrant and reports a dry mouth. Patient daughter reports her mothers eyes and skin appear yellow. Denies vomiting. Per nursing, patient lost IV access Objective Vital Signs and I&Os Vital Signs Date Time Temp Pulse Resp B/P B/P Pulse O2 O2 Flow FiO2 Mean Ox Delivery Rate 01/27 0622 98.1 82 20 140/80 92 Room Air 01/26 2304 98.1 83 18 150/80 94 01/26 2237 97.8 79 18 170/78 96 Room Air 01/26 1952 97.7 77 24 158/70 98 01/26 1728 97.4 72 20 152/66 97 Room Air 01/26 1542 98.1 67 20 159/70 97 Room Air 01/26 1502 98.1 66 18 148/80 98 Room Air 01/26 1439 97 Room Air 01/26 1214 97.3 71 20 119/78 98 Room Air Intake & Output 01/27 1600 01/27 0800 01/27 0000 01/26 1600 01/26 0800 01/26 0000 Intake Total 1400 1000 Output Total Balance 1400 1000 Intake, IV 1340 1000 Intake, Oral 60 Number 0 Bowel Movements Patient 200 lb 210 lb Weight Weight Reported by Patient Reported by Patient Measurement Method Physical Exam: Gen - Pale and drowsy, accompained by her daughter in NAD HEENT: sclera icterus present Card- S1S2 Pulm- CTAB Abd- Obese, soft, tender in ruq, epigastric region Ext- No edema or calf tenderness Current Medications: Current Medications Sig/Stefany Start time Last Medication Dose Route Stop Time Status Admin Albuterol Sulfate 2 PUF Q4-6 PRN PRN 01/27 0200 AC INH Ampicillin Sodium/ 3,000 MG Q6H 01/27 0430 AC 01/27 Sulbactam Sodium IV 0939 Sodium Chloride 100 ML Ampicillin Sodium/ 0 .STK-MED ONE 01/26 2226 DC Sulbactam Sodium .ROUTE Ampicillin Sodium/ 1,500 MG ONCE ONE 01/26 2145 DC 01/26 Sulbactam Sodium IV 01/26 2214 2226 Sodium Chloride 100 ML Enoxaparin Sodium 40 MG DAILY 01/27 1000 AC 01/27 SC 0802 Fluticasone 2 PUF BID 01/27 0152 AC 01/27 Propionate INH 0805 Lactated Ringer's 1,000 ML .Q5H 01/27 0015 DC 01/27 IV 01/27 1014 0548 Losartan Potassium 100 MG DAILY 01/27 1000 CAN PO Metoclopramide HCl 0 .STK-MED ONE 01/26 1835 DC .ROUTE Metoclopramide HCl 10 MG ONCE ONE 01/26 1830 DC 01/26 IV 01/26 1831 1836 Morphine Sulfate 4 MG Q4-6 PRN PRN 01/27 0745 AC 01/27 IV 0805 Morphine Sulfate 2 MG Q4P PRN 01/27 0015 DC 01/27 IV 0426 Morphine Sulfate 4 MG .STK-MED ONE 01/26 2349 DC IM 01/26 2350 Morphine Sulfate 2 MG ONCE ONE 01/26 2345 DC 01/26 IV 01/26 2346 2353 Morphine Sulfate 0 .STK-MED ONE 01/26 1950 DC .ROUTE Morphine Sulfate 4 MG ONCE ONE 01/26 1945 DC 01/26 IV 01/26 1946 1950 Morphine Sulfate 4 MG ONCE ONE 01/26 1545 DC 01/26 IV 01/26 1546 1539 Morphine Sulfate 0 .STK-MED ONE 01/26 1541 DC .ROUTE Morphine Sulfate 4 MG ONCE ONE 01/26 1445 DC 01/26 IV 01/26 1446 1437 Morphine Sulfate 0 .STK-MED ONE 01/26 1438 DC .ROUTE Ondansetron HCl 4 MG Q6P PRN 01/27 2345 AC IV Ondansetron HCl 4 MG ONCE ONE 01/26 1545 DC 01/26 IV 01/26 1546 1539 Ondansetron HCl 0 .STK-MED ONE 01/26 1541 DC .ROUTE Ondansetron HCl 0 .STK-MED ONE 01/26 1439 DC .ROUTE Ondansetron HCl 4 MG ONCE ONE 01/26 1430 DC 01/26 IV 01/26 1431 1438 Pantoprazole Sodium 40 MG DAILY 01/27 0015 AC 01/27 IV 0127 Sodium Chloride 1,000 ML BOLUS ONE 01/26 1530 DC 01/26 IV 01/26 1629 1529 Tiotropium Sawyer 1 PUF DAILY 01/27 1000 AC 01/27 INH 0805 Results Last 48 Hours of Labs: Laboratory Tests 01/27 01/27 1100 0812 Coagulation PT Pending INR Pending Toxicology Urine Opiates Screen (>2000 NG/ML) > 4000.00 H Methadone Screen (>300 NG/ML) < 40 Barbiturate Screen (>200 NG/ML) < 60 Ur Phencyclidine Scrn (>25 NG/ML) < 6.00 Amphetamines Screen (>1000 NG/ML) < 100 U Benzodiazepines Scrn (>200 NG/ML) < 85 Urine Cocaine Screen (>300 NG/ML) < 50 Urine Cannabis Screen (>50 NG/ML) < 5.00 01/27 01/26 0722 1709 Chemistry Sodium (137 - 145 mmol/L) 137 Potassium (3.5 - 5.1 mmol/L) 4.1 Chloride (98 - 107 mmol/L) 102 Carbon Dioxide (22 - 30 mmol/L) 25 Anion Gap (5 - 16) 10 BUN (7 - 17 mg/dL) 13 Creatinine (0.5 - 1.0 mg/dL) 0.9 Estimated GFR (>60 ml/min) > 60 BUN/Creatinine Ratio (7 - 25 %) 14.4 Lactic Acid Cancelled Total Bilirubin (0.2 - 1.3 mg/dL) 6.9 H Direct Bilirubin (< 0.4 mg/dL) 5.9 H AST (14 - 36 U/L) 302 H ALT (9 - 52 U/L) 372 H Alkaline Phosphatase (<127 U/L) 311 H Total Protein (6.3 - 8.2 g/dL) 6.8 Albumin (3.5 - 5.0 g/dL) 3.6 Triglycerides (<150 mg/dL) 49 Cholesterol (<200 MG/DL) 220 H LDL Cholesterol, Calc (65 - 129 mg/dL) 119 HDL Cholesterol (40 - 60 mg/dL) 87 H Cholesterol/HDL Ratio (0.00 - 4.23 %) 2.5 Hematology CBC w Diff NO MAN DIFF REQ WBC (4.8 - 10.8 /CUMM) 14.4 H RBC (4.20 - 5.40 /CUMM) 4.34 Hgb (12.0 - 16.0 G/DL) 13.5 Hct (37 - 47 %) 40.0 MCV (81.0 - 99.0 FL) 92.1 MCH (27.0 - 31.0 PG) 31.0 MCHC (33.0 - 37.0 G/DL) 33.7 RDW (11.5 - 14.5 %) 16.2 H Plt Count (130 - 400 /CUMM) 207 MPV (7.4 - 10.4 FL) 9.7 Gran % (42.2 - 75.2 %) 87.8 H Lymphocytes % (20.5 - 51.1 %) 4.8 L Monocytes % (1.7 - 9.3 %) 6.9 Eosinophils % (0 - 5 %) 0.4 Basophils % (0.0 - 2.0 %) 0.1 Absolute Granulocytes (1.4 - 6.5 /CUMM) 12.6 H Absolute Lymphocytes (1.2 - 3.4 /CUMM) 0.7 L Absolute Monocytes (0.10 - 0.60 /CUMM) 1.0 H Absolute Eosinophils (0.0 - 0.7 /CUMM) 0.1 Absolute Basophils (0.0 - 0.2 /CUMM) 0 Toxicology Serum Alcohol (<10 MG/DL) < 10.0 01/26 01/26 1656 1426 Hematology CBC w Diff NO MAN DIFF REQ WBC (4.8 - 10.8 /CUMM) 8.6 RBC (4.20 - 5.40 /CUMM) 4.67 Hgb (12.0 - 16.0 G/DL) 14.4 Hct (37 - 47 %) 42.5 MCV (81.0 - 99.0 FL) 90.9 MCH (27.0 - 31.0 PG) 30.9 MCHC (33.0 - 37.0 G/DL) 33.9 RDW (11.5 - 14.5 %) 15.6 H Plt Count (130 - 400 /CUMM) 208 MPV (7.4 - 10.4 FL) 8.9 Gran % (42.2 - 75.2 %) 80.1 H Lymphocytes % (20.5 - 51.1 %) 9.8 L Monocytes % (1.7 - 9.3 %) 7.2 Eosinophils % (0 - 5 %) 2.4 Basophils % (0.0 - 2.0 %) 0.5 Absolute Granulocytes (1.4 - 6.5 /CUMM) 6.9 H Absolute Lymphocytes (1.2 - 3.4 /CUMM) 0.8 L Absolute Monocytes (0.10 - 0.60 /CUMM) 0.6 Absolute Eosinophils (0.0 - 0.7 /CUMM) 0.2 Absolute Basophils (0.0 - 0.2 /CUMM) 0 Urines Urine Color (YEL,AMB,STR) YEL Urine Clarity (CLEAR) CLEAR Urine pH (5.0 - 8.0) 6.0 Ur Specific Kamas (1.001 - 1.035) 1.020 Urine Protein (NEG,<30 MG/DL) NEG Urine Ketones (NEG) NEG Urine Nitrite (NEG) NEG Urine Bilirubin (NEG) NEG@ICTO Urine Urobilinogen (0.1 - 1.0 EU/dl) 1.0 Ur Leukocyte Esterase (NEG) NEG Ur Microscopic EXAM NOT REQUIRED Urine Hemoglobin (NEG) NEG Urine Glucose (N MG/DL) NEG 01/26 01/26 1409 1346 Chemistry Sodium (137 - 145 mmol/L) 139 Cancelled Potassium (3.5 - 5.1 mmol/L) 4.2 Cancelled Chloride (98 - 107 mmol/L) 102 Cancelled Carbon Dioxide (22 - 30 mmol/L) 26 Cancelled Anion Gap (5 - 16) 11 Cancelled BUN (7 - 17 mg/dL) 20 H Cancelled Creatinine (0.5 - 1.0 mg/dL) 1.0 Cancelled Estimated GFR (>60 ml/min) 55 L BUN/Creatinine Ratio (7 - 25 %) 20.0 Cancelled Glucose (65 - 99 mg/dL) 125 H Cancelled Lactic Acid (0.7 - 2.1 mmol/L) 1.7 Calcium (8.4 - 10.2 mg/dL) 9.9 Cancelled Total Bilirubin (0.2 - 1.3 mg/dL) 4.6 H Cancelled Direct Bilirubin (< 0.4 mg/dL) 3.4 H AST (14 - 36 U/L) 310 H Cancelled ALT (9 - 52 U/L) 397 H Cancelled Alkaline Phosphatase (<127 U/L) 332 H Cancelled C-React Prot High Sens (1.0 - 3.0 mg/L) 12.7 H Total Protein (6.3 - 8.2 g/dL) 7.6 Cancelled Albumin (3.5 - 5.0 g/dL) 4.2 Cancelled Globulin (1.9 - 4.2 gm/dL) 3.4 Cancelled Albumin/Globulin Ratio (1.1 - 2.2 %) 1.2 Cancelled Triglycerides (<150 mg/dL) 71 Amylase (30 - 110 U/L) 1171 H Cancelled Lipase (23 - 300 U/L) > 55993 H Cancelled Assessment/Plan Assessment/Plan 67 F admitted with gallstone pancreatitis, now with uptrending bili and leukocytosis concerning for choledocolithiasis and cholangitis, scheduled for ERCP today NPO, agressive hydration IV abx - unasyn Pain meds prn Antiemetics prns Eventual cholecystectomy once pancreatits resolves Will continue to closely follow All other medical management per primary Dw Dr. Mariee
[2018-01-27 11:55] LABS: PT 13.1 SEC (9.4-12.5)
--- NOTE | 2018-01-27 12:01 | ULTRASOUND REPORT ---
EXAMINATION: US ABDOMEN COMPLETE CLINICAL INFORMATION: Abdominal pain, acute pancreatitis.. COMPARISON: CT 01/26/2018 TECHNIQUE: Real-time imaging of the abdominal viscera. FINDINGS: PANCREAS: Not well visualized, not reliably evaluated. ABDOMINAL AORTA: The proximal segment is normal in caliber. INFERIOR VENA CAVA: Visualized portions are normal. LIVER: Normal. The liver demonstrates normal size, contour and echogenicity. No focal lesion or intrahepatic biliary duct dilatation. GALLBLADDER: Multiple shadowing gallstones. Gallbladder is suboptimally distended. There is gallbladder wall thickening measuring 5 mm. No evidence of fluid or pericholecystic fluid or fluid within the bladder wall. There are foci of artifact noted within the bladder wall, suggesting adenomyomatosis of the fundus. There is diffuse nonspecific tenderness present in this region. COMMON BILE DUCT: Normal in caliber measuring 0.5 cm in diameter. The distal CBD near the pancreas is not visualized. RIGHT KIDNEY: Normal. No hydronephrosis. No renal calculi or focal parenchymal lesions. The kidney measures 9.3 cm in maximum dimension. LEFT KIDNEY: Normal. No hydronephrosis. No renal calculi or focal parenchymal lesions. The kidney measures 10.8 cm in maximum dimension. SPLEEN: Normal. The spleen measures 0.4 cm in maximum dimension. FREE FLUID: None. IMPRESSION: 1. The pancreas is not well visualized, and therefore cannot be evaluated by ultrasound. 2. Gallstones. Nonspecific wall thickening measuring 5 mm. There is nonspecific diffuse tenderness present. These findings may be related to pancreatitis versus cholecystitis. Clinical correlation is needed.
--- NOTE | 2018-01-27 16:56 | Proc Note ERCP ---
ERCP Procedure Procedure Date: 01/27/18 GI Procedure(s): ERCP with sphincterotomy Stars Specialist: Jonatan Yeh M.D. ASA Classification: III Indications: Gallstone pancreatitis, worsening jaundice, dilated biliary ducts Instrument: duodenoscope Meds Received: TIVA, nasal mask Patient's Tolerance: good Complications: none Procedure: The patient signed informed consent, was brought to the operating room and turned into the prone position, and was medicated. Pulse oximetry, blood pressure and cardiac monitoring were performed continuously throughout the procedure. The Olympus V duodenoscope was inserted into the mouth and advanced to the duodenum. The stomach was not examined. The duodenum was normal. The papilla was normal. A small pancreatic injection was performed. The Dreamtome was repositioned, and the bile duct cannulated with the Dreamwire. The biliary tree was opacified. The cholangiogram demonstrated normal caliber and contour of the common bile duct, common hepatic duct, and hepatic ducts. The cystic duct was opacified. There were no filling defects or strictures. A bloodless sphincterotomy was performed. An occlusion cholangiogram was negative. The inflated balloon was swept from bifurcation through ampulla to the duodenum without stones or debris delivered. Indomethacin 100 mg was given WA intraoperatively. Impression: * Normal cholangiogram without evidence choledocholithiasis * Performance of sphincterotomy (in the setting of gallstone pancreatitis and jaundice) Recommendations: * Management of pancreatitis (nothing by mouth, aggressive IV fluids, monitoring input and output, monitoring respiratory status, parenteral analgesia and antiemetics) * Follow-up CBC and liver associated enzymes * Continue IV antibiotics * Cholecystectomy once pancreatitis resolves CC: Kane MCCRARY,Cecil Rivera; Tato MCCRARY,Aroldo
[2018-01-27 18:11] VITALS: BP 118/74
--- NOTE | 2018-01-27 20:39 | RADIOLOGY REPORT ---
EXAMINATION: INTRAOPERATIVE FLUOROSCOPIC GUIDANCE AND ABDOMEN CLINICAL INFORMATION: Pancreatitis. Cholelithiasis. ERCP. COMPARISON: 01/27/2018. TECHNIQUE: Fluoroscopic time was utilized in the OR for Dr. medina. Fluoroscopic images were obtained in projections projections. FINDINGS: Fluoroscopic guidance was provided during ERCP. The common duct is of normal caliber. A filling defect is identified on the final images within the distal duct. FLUOROSCOPY TIME: 145 seconds of fluoroscopic time was utilized for the entirety of this examination. IMPRESSION: Fluoroscopic guidance was provided during ERCP. The common duct is of normal caliber. A filling defect is identified on the final images within the distal duct.
[2018-01-27 22:24] VITALS: BP 122/68
--- NOTE | 2018-01-28 07:09 | PN- Housestaff ---
Petrona MCCRARY,Nahum 01/28/18 0708: Subjective Follow-up For: gallstone pancreatitis Subjective: Patient was seen and examined at bedside. She is in [id number] distress secondary to abdominal pain, however, appeared improved from yesterday. She denies any nausea, vomiting, fever, chills and has not had a bowel movement recently. She states that morphine has been helping with her pain but she has been getting severe pain after 2-3 hours of each dose. Review of Systems Constitutional: Denies: chills, diaphoresis, fever. EENTM: Denies: blurred vision, double vision, visual changes. Cardiovascular: Denies: chest pain, palpitations. Respiratory: Denies: cough, short of breath. Gastrointestinal: Reports: abdominal pain, bloating. Denies: nausea, vomiting. Genitourinary: Reports: no symptoms. Musculoskeletal: Reports: no symptoms. Skin: Reports: no symptoms. Objective Last 24 Hrs of Vital Signs/I&O Vital Signs Date Time Temp Pulse Resp B/P B/P Pulse O2 O2 Flow FiO2 Mean Ox Delivery Rate 01/27 2224 98.4 78 18 122/68 96 Room Air 01/27 1959 93 Room Air 01/27 1811 83 18 118/74 93 Room Air 01/27 1442 Room Air Room Air Intake & Output 01/28 0800 01/28 0000 01/27 1600 Intake Total 1400 1600 910 Output Total 500 600 Balance 900 1600 310 Intake, IV 1400 1600 900 Intake, Oral 10 Output, Urine 500 600 Physical Exam General Appearance: Alert, Oriented X3, Cooperative, Moderate Distress Skin Temp/Moisture Exam: Warm/Dry HEENT: SCLERAL ICTERUS Cardiovascular: Regular Rate, Normal S1, Normal S2 Lungs: Clear to Auscultation, Normal Air Movement Abdomen: Soft, HYPOACTIVE BOWEL SOUNDS, MILD DISTENDED Neurological: Normal Speech, Normal Tone, Sensation Intact Extremities: No Clubbing, No Cyanosis, No Edema Current Medications: Current Medications Sig/Stefany Start time Last Medication Dose Route Stop Time Status Admin Albuterol Sulfate 2 PUF Q4-6 PRN PRN 01/27 0200 AC INH Ampicillin Sodium/ 3,000 MG Q6H 01/27 1915 AC 01/28 Sulbactam Sodium IV 0607 Sodium Chloride 100 ML Ampicillin Sodium/ 3,000 MG Q6H 01/27 0430 DC 01/27 Sulbactam Sodium IV 0939 Sodium Chloride 100 ML Ciprofloxacin 400 MG ONCE ONE 01/27 1330 CAN IV 01/27 1331 Ciprofloxacin 400 MG ONCE ONE 01/27 1330 DC Dextrose/Water 200 ML IV 01/27 1429 Enoxaparin Sodium 40 MG DAILY 01/27 1000 AC 01/27 SC 0802 Fentanyl Citrate 100 MCG .STK-MED ONE 01/27 1338 DC IM 01/27 1339 Fluticasone 2 PUF BID 01/27 0152 AC 01/27 Propionate INH 2202 Glucagon 2 MG .STK-MED ONE 01/27 1659 DC IV PUSH 01/27 1700 Iopamidol 100 ML .STK-MED ONE 01/27 1659 DC INT 01/27 1700 Ketamine HCl 50 MG .STK-MED ONE 01/27 1338 DC IM 01/27 1339 Lactated Ringer's 1,000 ML ONCE ONE 01/28 0500 AC 01/28 IV 01/28 0959 0559 Lactated Ringer's 1,000 ML ONCE ONE 01/27 2345 DC 01/28 IV 01/28 0444 0027 Lactated Ringer's 1,000 ML ONCE ONE 01/27 1145 DC 01/27 IV 01/27 1644 1150 Lactated Ringer's 1,000 ML .Q5H 01/27 0015 DC 01/27 IV 01/27 1014 0548 Lidocaine 2 KRISTOFER .STK-MED ONE 01/27 1659 DC TOP 01/27 1700 Midazolam HCl 2 MG .STK-MED ONE 01/27 1338 DC IM 01/27 1339 Morphine Sulfate 1 MG ONCE ONE 01/28 0630 DC 01/28 IV 01/28 0631 0635 Morphine Sulfate 4 MG Q4-6 PRN PRN 01/27 0745 AC 01/28 IV 0427 Morphine Sulfate 2 MG Q4P PRN 01/27 0015 DC 01/27 IV 0426 Ondansetron HCl 4 MG Q6P PRN 01/27 2345 AC IV Pantoprazole Sodium 40 MG DAILY 01/27 0015 AC 01/27 IV 0127 Tiotropium Valier 1 PUF DAILY 01/27 1000 AC 01/27 INH 0805 Last 24 Hrs of Lab/[place] Results Last 24 Hrs of Labs/Mics: Laboratory Tests 01/27/18 1100: PT 13.1 H, INR 1.25 H 01/27/18 0812: Urine Opiates Screen > 4000.00 H, Methadone Screen < 40, Barbiturate Screen < 60, Ur Phencyclidine Scrn < 6.00, Amphetamines Screen < 100, U Benzodiazepines Scrn < 85, Urine Cocaine Screen < 50, Urine Cannabis Screen < 5.00 01/27/18721: Anion Gap 10, Estimated GFR > 60, BUN/Creatinine Ratio 14.4, Total Bilirubin 6.9 H, Direct Bilirubin 5.9 H, AST 302 H, ALT 372 H, Alkaline Phosphatase 311 H , Total Protein 6.8, Albumin 3.6, Triglycerides 49, Cholesterol 220 H, LDL Cholesterol, Calc 119, HDL Cholesterol 87 H, Cholesterol/HDL Ratio 2.5, CBC w Diff NO MAN DIFF REQ, RBC 4.34, MCV 92.1, MCH 31.0, MCHC 33.7, RDW 16.2 H, MPV 9.7, Gran % 87.8 H, Lymphocytes % 4.8 L, Monocytes % 6.9, Eosinophils % 0.4, Basophils % 0.1, Absolute Granulocytes 12.6 H, Absolute Lymphocytes 0.7 L, Absolute Monocytes 1.0 H, Absolute Eosinophils 0.1, Absolute Basophils 0, Serum Alcohol < 10.0 Microbiology 01/27 733 BLOOD: Blood Culture - RECD 01/27 722 BLOOD: Blood Culture - RECD Lines/Diet/Fluids Fluids/Infusions: lactated Ringer 200 mL an hour Assessment/Plan Assessment: Patient is a 67-year-old female with a PMH significant for HTN, GERD, and COPD who presented complaining of approximately 2 week history of abdominal pain which increased in intensity the night prior to admission. On presentation she complained of 10/10 abdominal pain radiating to her back. She had associated nausea, chills, and episode of emesis in the ED. She had also had poor appetite. She denies any diarrhea or changes to her stool. She endorsed occasional alcohol use. #Gallstone pancreatitis Status post ERCP yesterday. Pain continues to be severe up to 10/10 left lower quadrant radiating to the back. Worsening leukocytosis however LFTs, total and direct bilirubin are improving. Patient will need cholecystectomy when clinically improved -Clear liquid diet as tolerated tonight, nothing by mouth at midnight for possible cholecystectomy tomorrow -Continue aggressive IV fluid rehydration -Continue adequate pain management with IV morphine, increased to 4 mg every 3 hours -Continue IV Unasyn -Continue IV Zofran for nausea #Chronic medical problems including COPD, HTN, GERD -Continue TRC/nebs -Continue holding hydralazine -Continue rest of medications Clear liquid diet, nothing by mouth at midnight DVT prophylaxis: Subcutaneous heparin, ALPS CODE STATUS: Full code Problem List: 1. Gallstone pancreatitis Pain Ratin Pain Location: abdomen, worst in the LLQ Pain Goal: Pain 4 or less Pain Plan: increase morphine to 4 mg IV Q 3 Tomorrow's Labs & Rationales: cbc, bep, LFTs Isha Briseno MD 01/28/18 1010: Attending MD Review Statement Attending Statement Attending MD Statement: examined this patient, discuss w/resident/PA/COMPUTED TOMOGRAPHY SCANNER OPERATOR, agreed w/resident/PA/COMPUTED TOMOGRAPHY SCANNER OPERATOR, reviewed EMR data (avail) Attending Assessment/Plan: 67F PMH HTN, COPD with 2 weeks of progressive intermittent epigastric pain, with 2 days of nausea and vomiting, found to have gallstone pancreatitis by labs and imaging s/p ERCP on 01/27 with no stone present, sphincterotomy done. Patient looks better today. She is still having 10/10 pain that is worse with any movement. She is nauseous and has no appetite. LFTs improving, remains afebrile. 1. Gallstone pancreatitis 2. Cholelithiasis 3. Obstructive jaundice Plan - Continue on general medicine - NPO - Continue Unasyn per GI recommendations - Continue IV fluids - Morphine 4mg q3h PRN - Follow GI and surgery recommendations - DVT PPx
[2018-01-28 07:25] VITALS: BP 138/74
--- NOTE | 2018-01-28 07:37 | PN- General Surgery ---
Subjective Subjective: Reports ongoing but improving abdominal pain that radiates to her back. She is s /p ercp with sphincterotomy yesterday. Currently npo. Objective Vital Signs and I&Os Vital Signs Date Time Temp Pulse Resp B/P B/P Pulse O2 O2 Flow FiO2 Mean Ox Delivery Rate 01/28 0725 97.7 80 18 138/74 92 01/27 2224 98.4 78 18 122/68 96 Room Air 01/27 1959 93 Room Air 01/27 1811 83 18 118/74 93 Room Air 01/27 1442 Room Air Room Air Intake & Output 01/28 0800 01/28 0000 01/27 1600 01/27 0800 01/27 0000 01/26 1600 Intake Total 1400 1665 458 8575 1000 Output Total 500 600 Balance 900 1665 332 6878 1000 Intake, IV 1400 6258 290 7706 1000 Intake, Oral 10 60 Number 0 Bowel Movements Output, Urine 500 600 Patient 200 lb 210 lb Weight Weight Reported by Patient Reported by Patient Measurement Method Physical Exam: General - alert & oriented x 3. uncomfortable. no acute distress. Abdomen - obese, soft, tender in ruq and epigastric region Current Medications: Current Medications Sig/Stefany Start time Last Medication Dose Route Stop Time Status Admin Albuterol Sulfate 2 PUF Q4-6 PRN PRN 01/27 0200 AC INH Ampicillin Sodium/ 3,000 MG Q6H 01/27 1915 AC 01/28 Sulbactam Sodium IV 0607 Sodium Chloride 100 ML Ampicillin Sodium/ 3,000 MG Q6H 01/27 0430 DC 01/27 Sulbactam Sodium IV 0939 Sodium Chloride 100 ML Ciprofloxacin 400 MG ONCE ONE 01/27 1330 CAN IV 01/27 1331 Ciprofloxacin 400 MG ONCE ONE 01/27 1330 DC Dextrose/Water 200 ML IV 01/27 1429 Enoxaparin Sodium 40 MG DAILY 01/27 1000 AC 01/27 SC 0802 Fentanyl Citrate 100 MCG .STK-MED ONE 01/27 1338 DC IM 01/27 1339 Fluticasone 2 PUF BID 01/27 0152 AC 01/27 Propionate INH 2202 Glucagon 2 MG .STK-MED ONE 01/27 1659 DC IV PUSH 01/27 1700 Iopamidol 100 ML .STK-MED ONE 01/27 1659 DC INT 01/27 1700 Ketamine HCl 50 MG .STK-MED ONE 01/27 1338 DC IM 01/27 1339 Lactated Ringer's 1,000 ML ONCE ONE 01/28 0500 AC 01/28 IV 01/28 0959 0559 Lactated Ringer's 1,000 ML ONCE ONE 01/27 2345 DC 01/28 IV 01/28 0444 0027 Lactated Ringer's 1,000 ML ONCE ONE 01/27 1145 DC 01/27 IV 01/27 1644 1150 Lactated Ringer's 1,000 ML .Q5H 01/27 0015 DC 01/27 IV 01/27 1014 0548 Lidocaine 2 KRISTOFER .STK-MED ONE 01/27 1659 DC TOP 01/27 1700 Midazolam HCl 2 MG .STK-MED ONE 01/27 1338 DC IM 01/27 1339 Morphine Sulfate 4 MG Q3 PRN 01/28 0735 UNVr IV Morphine Sulfate 1 MG ONCE ONE 01/28 0630 DC 01/28 IV 01/28 0631 0635 Morphine Sulfate 4 MG Q4-6 PRN PRN 01/27 0745 DC 01/28 IV 0427 Morphine Sulfate 2 MG Q4P PRN 01/27 0015 DC 01/27 IV 0426 Ondansetron HCl 4 MG Q6P PRN 01/27 2345 AC IV Pantoprazole Sodium 40 MG DAILY 01/27 0015 AC 01/27 IV 0127 Tiotropium [place] 1 PUF DAILY 01/27 1000 AC 01/27 INH 0805 Results Last 48 Hours of Labs: Laboratory Tests 01/28 01/27 01/27 0615 1100 0812 Chemistry Sodium Pending Potassium Pending Chloride Pending Carbon Dioxide Pending Anion Gap Pending BUN Pending Creatinine Pending BUN/Creatinine Ratio Pending Total Bilirubin Pending Direct Bilirubin Pending AST Pending ALT Pending Alkaline Phosphatase Pending Total Protein Pending Albumin Pending Coagulation PT (9.4 - 12.5 SEC) 13.1 H INR (0.90 - 1.19) 1.25 H Hematology CBC w Diff Pending WBC Pending RBC Pending Hgb Pending Hct Pending MCV Pending MCH Pending MCHC Pending RDW Pending Plt Count Pending MPV Pending Toxicology Urine Opiates Screen (>2000 NG/ML) > 4000.00 H Methadone Screen (>300 NG/ML) < 40 Barbiturate Screen (>200 NG/ML) < 60 Ur Phencyclidine Scrn (>25 NG/ML) < 6.00 Amphetamines Screen (>1000 NG/ML) < 100 U Benzodiazepines Scrn (>200 NG/ML) < 85 Urine Cocaine Screen (>300 NG/ML) < 50 Urine Cannabis Screen (>50 NG/ML) < 5.00 01/27 01/26 0722 1709 Chemistry Sodium (137 - 145 mmol/L) 137 Potassium (3.5 - 5.1 mmol/L) 4.1 Chloride (98 - 107 mmol/L) 102 Carbon Dioxide (22 - 30 mmol/L) 25 Anion Gap (5 - 16) 10 BUN (7 - 17 mg/dL) 13 Creatinine (0.5 - 1.0 mg/dL) 0.9 Estimated GFR (>60 ml/min) > 60 BUN/Creatinine Ratio (7 - 25 %) 14.4 Lactic Acid Cancelled Total Bilirubin (0.2 - 1.3 mg/dL) 6.9 H Direct Bilirubin (< 0.4 mg/dL) 5.9 H AST (14 - 36 U/L) 302 H ALT (9 - 52 U/L) 372 H Alkaline Phosphatase (<127 U/L) 311 H Total Protein (6.3 - 8.2 g/dL) 6.8 Albumin (3.5 - 5.0 g/dL) 3.6 Triglycerides (<150 mg/dL) 49 Cholesterol (<200 MG/DL) 220 H LDL Cholesterol, Calc (65 - 129 mg/dL) 119 HDL Cholesterol (40 - 60 mg/dL) 87 H Cholesterol/HDL Ratio (0.00 - 4.23 %) 2.5 Hematology CBC w Diff NO MAN DIFF REQ WBC (4.8 - 10.8 /CUMM) 14.4 H RBC (4.20 - 5.40 /CUMM) 4.34 Hgb (12.0 - 16.0 G/DL) 13.5 Hct (37 - 47 %) 40.0 MCV (81.0 - 99.0 FL) 92.1 MCH (27.0 - 31.0 PG) 31.0 MCHC (33.0 - 37.0 G/DL) 33.7 RDW (11.5 - 14.5 %) 16.2 H Plt Count (130 - 400 /CUMM) 207 MPV (7.4 - 10.4 FL) 9.7 Gran % (42.2 - 75.2 %) 87.8 H Lymphocytes % (20.5 - 51.1 %) 4.8 L Monocytes % (1.7 - 9.3 %) 6.9 Eosinophils % (0 - 5 %) 0.4 Basophils % (0.0 - 2.0 %) 0.1 Absolute Granulocytes (1.4 - 6.5 /CUMM) 12.6 H Absolute Lymphocytes (1.2 - 3.4 /CUMM) 0.7 L Absolute Monocytes (0.10 - 0.60 /CUMM) 1.0 H Absolute Eosinophils (0.0 - 0.7 /CUMM) 0.1 Absolute Basophils (0.0 - 0.2 /CUMM) 0 Toxicology Serum Alcohol (<10 MG/DL) < 10.0 01/26 01/26 1656 1426 Hematology CBC w Diff NO MAN DIFF REQ WBC (4.8 - 10.8 /CUMM) 8.6 RBC (4.20 - 5.40 /CUMM) 4.67 Hgb (12.0 - 16.0 G/DL) 14.4 Hct (37 - 47 %) 42.5 MCV (81.0 - 99.0 FL) 90.9 MCH (27.0 - 31.0 PG) 30.9 MCHC (33.0 - 37.0 G/DL) 33.9 RDW (11.5 - 14.5 %) 15.6 H Plt Count (130 - 400 /CUMM) 208 MPV (7.4 - 10.4 FL) 8.9 Gran % (42.2 - 75.2 %) 80.1 H Lymphocytes % (20.5 - 51.1 %) 9.8 L Monocytes % (1.7 - 9.3 %) 7.2 Eosinophils % (0 - 5 %) 2.4 Basophils % (0.0 - 2.0 %) 0.5 Absolute Granulocytes (1.4 - 6.5 /CUMM) 6.9 H Absolute Lymphocytes (1.2 - 3.4 /CUMM) 0.8 L Absolute Monocytes (0.10 - 0.60 /CUMM) 0.6 Absolute Eosinophils (0.0 - 0.7 /CUMM) 0.2 Absolute Basophils (0.0 - 0.2 /CUMM) 0 Urines Urine Color (YEL,AMB,STR) YEL Urine Clarity (CLEAR) CLEAR Urine pH (5.0 - 8.0) 6.0 Ur Specific [place] (1.001 - 1.035) 1.020 Urine Protein (NEG,<30 MG/DL) NEG Urine Ketones (NEG) NEG Urine Nitrite (NEG) NEG Urine Bilirubin (NEG) NEG@ICTO Urine Urobilinogen (0.1 - 1.0 EU/dl) 1.0 Ur Leukocyte Esterase (NEG) NEG Ur Microscopic EXAM NOT REQUIRED Urine Hemoglobin (NEG) NEG Urine Glucose (N MG/DL) NEG 01/26 01/26 1409 1346 Chemistry Sodium (137 - 145 mmol/L) 139 Cancelled Potassium (3.5 - 5.1 mmol/L) 4.2 Cancelled Chloride (98 - 107 mmol/L) 102 Cancelled Carbon Dioxide (22 - 30 mmol/L) 26 Cancelled Anion Gap (5 - 16) 11 Cancelled BUN (7 - 17 mg/dL) 20 H Cancelled Creatinine (0.5 - 1.0 mg/dL) 1.0 Cancelled Estimated GFR (>60 ml/min) 55 L BUN/Creatinine Ratio (7 - 25 %) 20.0 Cancelled Glucose (65 - 99 mg/dL) 125 H Cancelled Lactic Acid (0.7 - 2.1 mmol/L) 1.7 Calcium (8.4 - 10.2 mg/dL) 9.9 Cancelled Total Bilirubin (0.2 - 1.3 mg/dL) 4.6 H Cancelled Direct Bilirubin (< 0.4 mg/dL) 3.4 H AST (14 - 36 U/L) 310 H Cancelled ALT (9 - 52 U/L) 397 H Cancelled Alkaline Phosphatase (<127 U/L) 332 H Cancelled C-React Prot High Sens (1.0 - 3.0 mg/L) 12.7 H Total Protein (6.3 - 8.2 g/dL) 7.6 Cancelled Albumin (3.5 - 5.0 g/dL) 4.2 Cancelled Globulin (1.9 - 4.2 gm/dL) 3.4 Cancelled Albumin/Globulin Ratio (1.1 - 2.2 %) 1.2 Cancelled Triglycerides (<150 mg/dL) 71 Amylase (30 - 110 U/L) 1171 H Cancelled Lipase (23 - 300 U/L) > 97767 H Cancelled Assessment/Plan Assessment/Plan This 67 female with hx htn admitted with gallstone pancreatitis, now PPD#1 s/p ERCP (normal cholangiogram without evidence choledocholithiasis) and sphincterotomy (in the setting of gallstone pancreatitis and jaundice), with plans for cholecystectomy with resolution of pancreatitis continue npo / ivf iv unasyn Pain meds prn Antiemetics prns cholecystectomy planned with resolution of pancreatitis f/u labs will d/w today to define timeline
[2018-01-28 09:04] LABS: ABSOLUTE BASOPHIL COUNT 0 /CUMM (0.0-0.2); ABSOLUTE EOSINOPHIL COUNT 0.1 /CUMM (0.0-0.7); ABSOLUTE LYMPH COUNT 0.6 /CUMM (1.2-3.4); ABSOLUTE MONOCYTE COUNT 1.2 /CUMM (0.10-0.60); BASOPHIL % 0 % (0.0-2.0); EOSINOPHIL % 0.5 % (0-5); GRANULOCYTE % 91.1 % (42.2-75.2); HEMATOCRIT 36.2 % (37-47); MEAN CORPUSCULAR HGB CONC 33.7 G/DL (33.0-37.0); MEAN CORPUSCULAR VOLUME 91.9 FL (81.0-99.0); MEAN PLATELET VOLUME 9.6 FL (7.4-10.4); PLATELET COUNT 160 /CUMM (130-400); RBC DISTRIBUTION WIDTH 15.5 % (11.5-14.5); RED BLOOD CELL CT 3.94 /CUMM (4.20-5.40); WHITE BLOOD CELL COUNT 20.9 /CUMM (4.8-10.8)
[2018-01-28 14:45] VITALS: BP 160/82
[2018-01-28 22:22] VITALS: BP 148/80
[2018-01-29 06:38] VITALS: BP 160/80
--- NOTE | 2018-01-29 07:08 | PN- Housestaff ---
Petrona MCCRARY,Nahum 01/29/18 0708: Subjective Follow-up For: Gallstone pancreatitis Subjective: patient was seen and examined at bedside. She was in moderate distress secondary to abdominal pain which remains wrost in the LLQ and continues to radiate to the back. After conversion to IV Dilaudid patient reported significant improvement in her pain. She currently has no new complaints and denies any nausea, vomiting, fever, chills. She has not had a bowel movement during this admission. Review of Systems Constitutional: Denies: chills, fever. EENTM: Reports: no symptoms. Cardiovascular: Denies: chest pain, palpitations. Respiratory: Denies: cough, short of breath. Gastrointestinal: Reports: bloating, nausea, vomiting. Genitourinary: Reports: no symptoms. Musculoskeletal: Reports: no symptoms. Objective Last 24 Hrs of Vital Signs/I&O Vital Signs Date Time Temp Pulse Resp B/P B/P Pulse O2 O2 Flow FiO2 Mean Ox Delivery Rate 01/29 0638 98.0 100 20 160/80 91 Room Air 01/28 2222 97.9 95 20 148/80 93 Room Air 01/28 2200 92 Room Air 01/28 1445 97.7 99 20 160/82 94 Room Air 01/28 1417 94 Room Air 01/28 0725 97.7 80 18 138/74 92 Intake & Output 01/29 0800 01/29 0000 01/28 1600 Intake Total 3671 007 9788 Output Total 860 844 0248 Balance 1030 500 600 Intake, IV 2116 885 1634 Intake, Oral 30 0 Number 0 0 Bowel Movements Output, Urine 923 996 4920 Physical Exam General Appearance: Alert, Oriented X3, Cooperative, Moderate Distress Skin Temp/Moisture Exam: Warm/Dry HEENT: scleral icterus Cardiovascular: Regular Rate, Normal S1, Normal S2 Lungs: Clear to Auscultation, Normal Air Movement Abdomen: mild distension, appears improved from yesterday, TTP in the RUQ, epigastric, LUQ and LLQ Neurological: Normal Speech, Normal Tone, Sensation Intact Current Medications: Current Medications Sig/Stefany Start time Last Medication Dose Route Stop Time Status Admin Albuterol Sulfate 2 PUF Q4-6 PRN PRN 01/27 0200 AC INH Ampicillin Sodium/ 3,000 MG Q6H 01/27 1915 AC 01/29 Sulbactam Sodium IV 0117 Sodium Chloride 100 ML Enoxaparin Sodium 40 MG DAILY 01/27 1000 DC 01/28 SC 0958 Fluticasone 2 PUF BID 01/27 0152 AC 01/28 Propionate INH 2235 Heparin Sodium 5,000 UNIT Q8 01/28 2200 AC 01/29 (Porcine) SC 0601 Lactated Ringer's 1,000 ML .Q5H 01/28 1315 AC 01/29 IV 01/29 0914 0608 Lactated Ringer's 1,000 ML ONCE ONE 01/28 0500 DC 01/28 IV 01/28 0959 0559 Morphine Sulfate 4 MG Q3 PRN 01/28 0735 AC 01/29 IV 0601 Morphine Sulfate 4 MG Q4-6 PRN PRN 01/27 0745 DC 01/28 IV 0427 Ondansetron HCl 4 MG Q6P PRN 01/27 2345 AC IV Pantoprazole Sodium 40 MG DAILY 01/27 0015 AC 01/28 IV 0958 Tiotropium [place] 1 PUF DAILY 01/27 1000 AC 01/28 INH 0959 Last 24 Hrs of Lab/[place] Results Last 24 Hrs of Labs/Mics: Laboratory Tests 01/29/18 0606: Sodium Pending, Potassium Pending, Chloride Pending, Carbon Dioxide Pending, Anion Gap Pending, BUN Pending, Creatinine Pending, BUN/Creatinine Ratio Pending , Total Bilirubin Pending, Direct Bilirubin Pending, AST Pending, ALT Pending, Alkaline Phosphatase Pending, Total Protein Pending, Albumin Pending, CBC w Diff Pending, WBC Pending, RBC Pending, Hgb Pending, Hct Pending, MCV Pending, MCH Pending, MCHC Pending, RDW Pending, Plt Count Pending, MPV Pending 01/28/18 0815: CBC w Diff MAN DIFF ORDERED, RBC 3.94 L, MCV 91.9, MCH 31.0, MCHC 33.7, RDW 15.5 H, MPV 9.6, Gran % 91.1 H, Lymphocytes % 2.8 L, Monocytes % 5.6, Eosinophils % 0.5, Basophils % 0, Absolute Granulocytes 19.0 H, Segmented Neutrophils 80 H, Band Neutrophils 8 H, Absolute Lymphocytes 0.6 L, Lymphocytes 4 L, Monocytes 7, Absolute Monocytes 1.2 H, Eosinophils 1, Absolute Eosinophils 0.1, Absolute Basophils 0, Normocytic RBCs VERIFIED, Normochromic RBCs VERIFIED Assessment/Plan Assessment: Patient is a 67-year-old female with a PMH significant for HTN, GERD, and COPD who presented complaining of approximately 2 week history of abdominal pain which increased in intensity the night prior to admission. On presentation she complained of 10/10 abdominal pain radiating to her back. She had associated nausea, chills, and episode of emesis in the ED. She had also had poor appetite. She denied any diarrhea or changes to her stool. She endorsed occasional alcohol use. #Gallstone pancreatitis LFTs, total and direct bilirubin continue to improve. still awaiting cholecystecomy, possibly done tomorrow, will be reassessed by surgery in AM. Patient's daughter requested a call prior to operation so that she may be present. -Clear liquid diet today, advance as tolerated -NPO at midnight for possible cholecystectomy tomorrow -Continue aggressive IV fluid hydration -DC morphine, start PO dilaudid 3 mg q 4 hrs -Continue IV Unasyn -Continue IV Zofran for nausea #Chronic medical problems including COPD, HTN, GERD -Continue TRC/nebs -Continue holding hydralazine -Continue rest of medications Clear liquid, advance as tolerated; NPO at midnight DVT prophylaxis: Subcutaneous heparin, ALPS CODE STATUS: Full code Problem List: 1. Gallstone pancreatitis Pain Ratin Pain Location: abdomen Pain Goal: Pain 4 or less Pain Plan: change to dilaudid 1 mg IV q 4 hrs Tomorrow's Labs & Rationales: cbc, bep, LFTs Isha Briseno MD 01/29/18 1348: Attending MD Review Statement Attending Statement Attending MD Statement: examined this patient, discuss w/resident/PA/GLASS MOULD CLEANER, agreed w/resident/PA/GLASS MOULD CLEANER, reviewed EMR data (avail) Attending Assessment/Plan: 67F PMH HTN, COPD with 2 weeks of progressive intermittent epigastric pain, with 2 days of nausea and vomiting, found to have gallstone pancreatitis by labs and imaging s/p ERCP on 01/27 with no stone present, sphincterotomy done. Patient looks better today. Pain has improved since starting Dilaudid. She is nauseous and has no appetite. LFTs improving, remains afebrile. 1. Gallstone pancreatitis 2. Cholelithiasis 3. Obstructive jaundice Plan - Continue on general medicine - NPO - Continue Unasyn per GI recommendations - Continue IV fluids - Will go to OR tomorrow - Dilaudid PRN - Follow GI and surgery recommendations - DVT PPx
--- NOTE | 2018-01-29 07:52 | PN- General Surgery ---
See Addendum Subjective Subjective: Patient reports continous abdominal pain that radiates around her back, uncontrolled with Morphine. Switched to IV dilaudid. She reports a dryu mouth. She denies fever, chills, nausea or vomiting. Objective Vital Signs and I&Os Vital Signs Date Time Temp Pulse Resp B/P B/P Pulse O2 O2 Flow FiO2 Mean Ox Delivery Rate 01/29 0638 98.0 100 20 160/80 91 Room Air 01/28 2222 97.9 95 20 148/80 93 Room Air 01/28 2200 92 Room Air 01/28 1445 97.7 99 20 160/82 94 Room Air 01/28 1417 94 Room Air Intake & Output 01/29 0801/29 0000 01/28 1600 01/28 0800 01/28 0000 01/27 1600 Intake Total 7577 759 6016 1400 1600 910 Output Total 916 123 6833 500 600 Balance 1030 500 709 775 3089 310 Intake, IV 7278 964 6737 1400 1600 900 Intake, Oral 30 0 10 Number 0 0 Bowel Movements Output, Urine 654 201 8975 500 600 Physical Exam: General - alert & oriented x 3. uncomfortable in moderate distress secondary to pain HEENT - sclera icterus present and improving Abdomen - obese, soft, moderately tender in ruq and epigastric region with guarding, no rebound. Current Medications: Current Medications Sig/Stefany Start time Last Medication Dose Route Stop Time Status Admin Albuterol Sulfate 2 PUF Q4-6 PRN PRN 01/27 0200 AC INH Ampicillin Sodium/ 3,000 MG Q6H 01/27 1915 01/29 Sulbactam Sodium IV 0117 Sodium Chloride 100 ML Enoxaparin Sodium 40 MG DAILY 01/27 1000 DC 01/28 PA 0958 Fluticasone 2 PUF BID 01/27 0152 01/28 Propionate INH 2235 Heparin Sodium 5,000 UNIT Q8 01/28 2200 AC 01/29 (Porcine) SC 0601 Hydromorphone HCl 1 MG Q4P PRN 01/29 0730 AC IV Lactated Ringer's 1,000 ML .Q5H 01/28 1315 AC 01/29 IV 01/29 0914 0608 Lactated Ringer's 1,000 ML ONCE ONE 01/28 0500 DC 01/28 IV 01/28 0959 0559 Morphine Sulfate 4 MG Q3 PRN 01/28 0735 DC 01/29 IV 0601 Ondansetron HCl 4 MG Q6P PRN 01/27 2345 AC IV Pantoprazole Sodium 40 MG DAILY 01/27 0015 AC 01/28 IV 0958 Tiotropium [place] 1 PUF DAILY 01/27 1000 AC 01/28 INH 0959 Results Last 48 Hours of Labs: Laboratory Tests 01/29 01/28 01/28 0606 0815 0615 Chemistry Sodium (137 - 145 mmol/L) Pending 138 Potassium (3.5 - 5.1 mmol/L) Pending 4.1 Chloride (98 - 107 mmol/L) Pending 101 Carbon Dioxide (22 - 30 mmol/L) Pending 23 Anion Gap (5 - 16) Pending 13 BUN (7 - 17 mg/dL) Pending 14 Creatinine (0.5 - 1.0 mg/dL) Pending 0.8 Estimated GFR (>60 ml/min) > 60 BUN/Creatinine Ratio (7 - 25 %) Pending 17.5 Total Bilirubin (0.2 - 1.3 mg/dL) Pending 5.2 H Direct Bilirubin (< 0.4 mg/dL) Pending 4.1 H AST (14 - 36 U/L) Pending 122 H ALT (9 - 52 U/L) Pending 230 H Alkaline Phosphatase (<127 U/L) Pending 231 H Total Protein (6.3 - 8.2 g/dL) Pending 5.6 L Albumin (3.5 - 5.0 g/dL) Pending 2.9 L Hematology CBC w Diff Pending MAN DIFF ORDERED WBC (4.8 - 10.8 /CUMM) Pending 20.9 H RBC (4.20 - 5.40 /CUMM) Pending 3.94 L Hgb (12.0 - 16.0 G/DL) Pending 12.2 Hct (37 - 47 %) Pending 36.2 L MCV (81.0 - 99.0 FL) Pending 91.9 MCH (27.0 - 31.0 PG) Pending 31.0 MCHC (33.0 - 37.0 G/DL) Pending 33.7 RDW (11.5 - 14.5 %) Pending 15.5 H Plt Count (130 - 400 /CUMM) Pending 160 MPV (7.4 - 10.4 FL) Pending 9.6 Gran % (42.2 - 75.2 %) 91.1 H Lymphocytes % (20.5 - 51.1 %) 2.8 L Monocytes % (1.7 - 9.3 %) 5.6 Eosinophils % (0 - 5 %) 0.5 Basophils % (0.0 - 2.0 %) 0 Absolute Granulocytes (1.4 - 6.5 /CUMM) 19.0 H Segmented Neutrophils (42.2 - 75.2 %) 80 H Band Neutrophils (0.0 - 5.0 %) 8 H Absolute Lymphocytes (1.2 - 3.4 /CUMM) 0.6 L Lymphocytes (20.5 - 51.1 %) 4 L Monocytes (1.7 - 9.3 %) 7 Absolute Monocytes (0.10 - 0.60 /CUMM) 1.2 H Eosinophils (0 - 5.0 %) 1 Absolute Eosinophils (0.0 - 0.7 /CUMM) 0.1 Absolute Basophils (0.0 - 0.2 /CUMM) 0 Normocytic RBCs VERIFIED Normochromic RBCs VERIFIED 01/27 01/27 1100 0812 Coagulation PT (9.4 - 12.5 SEC) 13.1 H INR (0.90 - 1.19) 1.25 H Toxicology Urine Opiates Screen (>2000 NG/ML) > 4000.00 H Methadone Screen (>300 NG/ML) < 40 Barbiturate Screen (>200 NG/ML) < 60 Ur Phencyclidine Scrn (>25 NG/ML) < 6.00 Amphetamines Screen (>1000 NG/ML) < 100 U Benzodiazepines Scrn (>200 NG/ML) < 85 Urine Cocaine Screen (>300 NG/ML) < 50 Urine Cannabis Screen (>50 NG/ML) < 5.00 Assessment/Plan Assessment/Plan 67 F admitted with gallstone pancreatitis, now PPD 2 s/p ERCP with normal cholangiogram and sphincterotomy with moderate pain and tenderness on examination, LFTs and bili downtrending Keep npo Agressive ivf IV unasyn Pain meds prn Antiemetics prn Lap rachael once pancreatitis resolves Will continue to monitor F/u labs Will d/w
[2018-01-29 08:06] LABS: ABSOLUTE BASOPHIL COUNT 0 /CUMM (0.0-0.2); ABSOLUTE EOSINOPHIL COUNT 0.1 /CUMM (0.0-0.7); ABSOLUTE GRANULOCYTE CT 17.3 /CUMM (1.4-6.5); ABSOLUTE LYMPH COUNT 0.9 /CUMM (1.2-3.4); ABSOLUTE MONOCYTE COUNT 1.2 /CUMM (0.10-0.60); BASOPHIL % 0 % (0.0-2.0); EOSINOPHIL % 0.5 % (0-5); GRANULOCYTE % 88.7 % (42.2-75.2); HEMATOCRIT 34.5 % (37-47); MEAN CORPUSCULAR HGB 31.2 PG (27.0-31.0); MEAN CORPUSCULAR VOLUME 91.5 FL (81.0-99.0); PLATELET COUNT 169 /CUMM (130-400); RBC DISTRIBUTION WIDTH 15.8 % (11.5-14.5); RED BLOOD CELL CT 3.77 /CUMM (4.20-5.40); WHITE BLOOD CELL COUNT 19.5 /CUMM (4.8-10.8)
[2018-01-29 13:58] VITALS: BP 150/76
[2018-01-29 22:03] VITALS: BP 148/70
[2018-01-30 07:09] VITALS: BP 156/78
--- NOTE | 2018-01-30 07:10 | PN- Housestaff ---
Petrona MCCRARY,Nahum 01/30/18 0709: Subjective Follow-up For: gallstone pancreatitis Subjective: Patient was seen and examined at bedside. She is resting comfortably. She had no acute events overnight. She currently denies any abdominal pain and states that the current pain management regimen is working well. She is able to tolerate a full liquid diet for dinner last night with no complaints. She still has not had a bowel movement on this admission. Her bloating has also improved. She currently denies any nausea, vomiting, fever, chills, chest pain, shortness of breath. Rest of review of systems as below. Review of Systems Constitutional: Denies: chills, fever. Cardiovascular: Denies: chest pain, palpitations. Respiratory: Denies: cough, short of breath. Gastrointestinal: Denies: abdominal pain, bloating. Genitourinary: Reports: no symptoms. Musculoskeletal: Reports: no symptoms. Objective Last 24 Hrs of Vital Signs/I&O Vital Signs Date Time Temp Pulse Resp B/P B/P Pulse O2 O2 Flow FiO2 Mean Ox Delivery Rate 01/29 2203 97.9 90 20 148/70 95 Room Air 01/29 1358 97.5 92 20 150/76 92 Room Air Intake & Output 01/30 0800 01/30 0000 01/29 1600 Intake Total 1650 Output Total 300 500 550 Balance -300 -500 1100 Intake, IV 1250 Intake, Oral 400 Number 0 Bowel Movements Output, Urine 300 500 550 Patient 199 lb Weight Physical Exam General Appearance: Alert, Oriented X3, No Acute Distress Skin Temp/Moisture Exam: Warm/Dry HEENT: mild scleral icterus Cardiovascular: Regular Rate, Normal S1, Normal S2 Lungs: Clear to Auscultation, Normal Air Movement Abdomen: Normal Bowel Sounds, Soft, TTP in the RUQ, LLQ and epigastric areas, improved from yesterday Neurological: Normal Speech, Normal Tone, Sensation Intact Extremities: No Clubbing, No Cyanosis, No Edema Current Medications: Current Medications Sig/Stefany Start time Last Medication Dose Route Stop Time Status Admin Albuterol Sulfate 2 PUF Q4-6 PRN PRN 01/27 0200 AC INH Ampicillin Sodium/ 3,000 MG Q6H 01/27 1915 AC 01/30 Sulbactam Sodium IV 0645 Sodium Chloride 100 ML Fluticasone 2 PUF BID 01/27 0152 AC 01/29 Propionate INH 2133 Heparin Sodium 5,000 UNIT Q8 01/28 2200 AC 01/30 (Porcine) SC 0538 Hydromorphone HCl 1 MG Q4P PRN 01/30 0000 DC IV Hydromorphone HCl 1 MG Q4P PRN 01/29 1800 AC 01/30 IV 0537 Hydromorphone HCl 1 MG ONCE ONE 01/29 1200 DC 01/29 IV 01/29 1201 1155 Hydromorphone HCl 3 MG Q4P PRN 01/29 1200 DC 01/29 PO 01/30 0000 1607 Hydromorphone HCl 2 MG Q4P PRN 01/29 1000 DC 01/29 PO 1108 Hydromorphone HCl 1 MG Q4P PRN 01/29 0730 DC 01/29 IV 0749 Lactated Ringer's 1,000 ML Q6H 01/29 1015 AC 01/30 IV 0434 Lactated Ringer's 1,000 ML .Q5H 01/28 1315 DC 01/29 IV 01/29 0914 0608 Melatonin 5 MG AT BEDTIME 01/30 220 AC PO Morphine Sulfate 4 MG Q3 PRN 01/28 0735 DC 01/29 IV 0601 Ondansetron HCl 4 MG Q6P PRN 01/27 2345 AC 01/30 IV 0054 Pantoprazole Sodium 40 MG DAILY 01/27 0015 AC 01/29 IV 0749 Tiotropium [place] 1 PUF DAILY 01/27 1000 AC 01/29 INH 0804 Last 24 Hrs of Lab/[place] Results Last 24 Hrs of Labs/Mics: Laboratory Tests 01/30/18 0605: Sodium Pending, Potassium Pending, Chloride Pending, Carbon Dioxide Pending, Anion Gap Pending, BUN Pending, Creatinine Pending, BUN/Creatinine Ratio Pending , Total Bilirubin Pending, Direct Bilirubin Pending, AST Pending, ALT Pending, Alkaline Phosphatase Pending, Total Protein Pending, Albumin Pending, CBC w Diff Pending, WBC Pending, RBC Pending, Hgb Pending, Hct Pending, MCV Pending, MCH Pending, MCHC Pending, RDW Pending, Plt Count Pending, MPV Pending Assessment/Plan Assessment: Patient is a 67-year-old female with a PMH significant for HTN, GERD, and COPD who presented complaining of approximately 2 week history of abdominal pain which increased in intensity the night prior to admission. On presentation she complained of 10/10 abdominal pain radiating to her back. She had associated nausea, chills, and episode of emesis in the ED. She had also had poor appetite. She denied any diarrhea or changes to her stool. She endorsed occasional alcohol use. #Gallstone pancreatitis Plan for cholecystectomy once negative ptosis clinically improved, patient's pain is currently well controlled. Leukocytosis resolving. Able to tolerate full liquid diet last night. -Nothing by mouth pending possible surgery today -Continue current pain management, resume oral pain medication when no longer nothing by mouth -Continue IV Unasyn -Continue IV Zofran for nausea -post op will start with full liquid diet and plan to advance as tolerated -anticipated DC home tomorrow if stable after surgery #Chronic medical problems including COPD, HTN, GERD -Continue TRC/nebs -Resume home antihypertensives, pt has been hypertensive but asymptomatic -Continue rest of medications NPO for possible OR today DVT prophylaxis: Subcutaneous heparin, ALPS CODE STATUS: Full code Problem List: 1. Gallstone pancreatitis Pain Ratin Pain Location: none Pain Goal: Pain 4 or less Pain Plan: continue current regimen, switch to PO dilaudid when no longer NPO Tomorrow's Labs & Rationales: cbc, lfts Isha Briseno MD 01/30/18 1025: Attending MD Review Statement Attending Statement Attending MD Statement: examined this patient, discuss w/resident/PA/DRYWALL HANGER HELPER, agreed w/resident/PA/DRYWALL HANGER HELPER, reviewed EMR data (avail) Attending Assessment/Plan: 67F PMH HTN, COPD with 2 weeks of progressive intermittent epigastric pain, with 2 days of nausea and vomiting, found to have gallstone pancreatitis by labs and imaging s/p ERCP on 01/27 with no stone present, sphincterotomy done. Patient looks better today. Pain has improved since starting Dilaudid. Was able to tolerate full liquid diet last night. LFTs improving, remains afebrile. 1. Gallstone pancreatitis 2. Cholelithiasis 3. Obstructive jaundice Plan - Continue on general medicine - To OR for cholecystectomy today - Continue Unasyn per GI recommendations - Continue IV fluids - Dilaudid PRN - Follow GI and surgery recommendations - DVT PPx - Post-op advance diet as tolerated, anticipated discharge tomorrow, can give 10 Percocet for pain on discharge, no further antibiotics
[2018-01-30 08:05] LABS: ABSOLUTE BASOPHIL COUNT 0 /CUMM (0.0-0.2); ABSOLUTE EOSINOPHIL COUNT 0.1 /CUMM (0.0-0.7); ABSOLUTE GRANULOCYTE CT 11.3 /CUMM (1.4-6.5); ABSOLUTE LYMPH COUNT 0.6 /CUMM (1.2-3.4); ABSOLUTE MONOCYTE COUNT 0.9 /CUMM (0.10-0.60); BASOPHIL % 0 % (0.0-2.0); EOSINOPHIL % 0.9 % (0-5); HEMATOCRIT 33.7 % (37-47); MEAN CORPUSCULAR HGB 31.3 PG (27.0-31.0); MEAN CORPUSCULAR HGB CONC 33.9 G/DL (33.0-37.0); MEAN CORPUSCULAR VOLUME 92.4 FL (81.0-99.0); MEAN PLATELET VOLUME 9.4 FL (7.4-10.4); PLATELET COUNT 205 /CUMM (130-400); RBC DISTRIBUTION WIDTH 15.5 % (11.5-14.5); RED BLOOD CELL CT 3.65 /CUMM (4.20-5.40); WHITE BLOOD CELL COUNT 12.9 /CUMM (4.8-10.8)
--- NOTE | 2018-01-30 08:27 | PN- General Surgery ---
See Addendum Subjective Subjective: Reports improving pain, with mostly left lower abdominal pain radiating to her back. She feels slightly bloated after trying a yogurt yesterday, but denies nausea and is passing flatus. She is currently NPO anticipating cholecystectomy today. Objective Vital Signs and I&Os Vital Signs Date Time Temp Pulse Resp B/P B/P Pulse O2 O2 Flow FiO2 Mean Ox Delivery Rate 01/30 709 97.4 102 20 156/78 93 01/29 2203 97.9 90 20 148/70 95 Room Air 01/29 1358 97.5 92 20 150/76 92 Room Air Intake & Output 01/30 1600 01/30 0800 01/30 0000 01/29 1600 01/29 0800 01/29 0000 Intake Total 1050 1650 1630 800 Output Total 650 500 550 600 300 Balance 400 -500 1100 1030 500 Intake, IV 1050 1250 1600 800 Intake, Oral 400 30 0 Number 0 0 0 Bowel Movements Output, Urine 650 500 550 600 300 Patient 199 lb Weight Physical Exam: General - alert & oriented. comfortable. no acute distress. Abdomen - obese. soft. nontender. Current Medications: Current Medications Sig/Stefany Start time Last Medication Dose Route Stop Time Status Admin Albuterol Sulfate 2 PUF Q4-6 PRN PRN 01/27 0200 AC INH Ampicillin Sodium/ 3,000 MG Q6H 01/27 1915 AC 01/30 Sulbactam Sodium IV 0645 Sodium Chloride 100 ML Fluticasone 2 PUF BID 01/27 0152 AC 01/29 Propionate INH 2133 Heparin Sodium 5,000 UNIT Q8 01/28 2200 AC 01/30 (Porcine) SC 0538 Hydrochlorothiazide 12.5 MG DAILY 01/30 1000 AC PO Hydromorphone HCl 1 MG Q4P PRN 01/30 0000 DC IV Hydromorphone HCl 1 MG Q4P PRN 01/29 1800 AC 01/30 IV 0537 Hydromorphone HCl 1 MG ONCE ONE 01/29 1200 DC 01/29 IV 01/29 1201 1155 Hydromorphone HCl 3 MG Q4P PRN 01/29 1200 DC 01/29 PO 01/30 0000 1607 Hydromorphone HCl 2 MG Q4P PRN 01/29 1000 DC 01/29 PO 1108 Hydromorphone HCl 1 MG Q4P PRN 01/29 0730 DC 01/29 IV 0749 Lactated Ringer's 1,000 ML Q6H 01/29 1015 AC 01/30 IV 0434 Lactated Ringer's 1,000 ML .Q5H 01/28 1315 DC 01/29 IV 01/29 0914 0608 Losartan Potassium 100 MG DAILY 01/30 1000 AC PO Melatonin 5 MG AT BEDTIME 01/30 2200 AC PO Ondansetron HCl 4 MG Q6P PRN 01/27 2345 AC 01/30 IV 0054 Pantoprazole Sodium 40 MG DAILY 01/27 0015 AC 01/29 IV 0749 Tiotropium [place] 1 PUF DAILY 01/27 1000 AC 01/29 INH 0804 Results Last 48 Hours of Labs: Laboratory Tests 01/30 01/29 0605 0606 Chemistry Sodium (137 - 145 mmol/L) Pending 135 L Potassium (3.5 - 5.1 mmol/L) Pending 3.8 Chloride (98 - 107 mmol/L) Pending 98 Carbon Dioxide (22 - 30 mmol/L) Pending 26 Anion Gap (5 - 16) Pending 11 BUN (7 - 17 mg/dL) Pending 13 Creatinine (0.5 - 1.0 mg/dL) Pending 0.7 Estimated GFR (>60 ml/min) > 60 BUN/Creatinine Ratio (7 - 25 %) Pending 18.6 Total Bilirubin (0.2 - 1.3 mg/dL) Pending 2.7 H Direct Bilirubin (< 0.4 mg/dL) Pending 2.0 H AST (14 - 36 U/L) Pending 62 H ALT (9 - 52 U/L) Pending 157 H Alkaline Phosphatase (<127 U/L) Pending 206 H Total Protein (6.3 - 8.2 g/dL) Pending 5.5 L Albumin (3.5 - 5.0 g/dL) Pending 2.7 L Hematology CBC w Diff Pending MAN DIFF ORDERED WBC (4.8 - 10.8 /CUMM) Pending 19.5 H RBC (4.20 - 5.40 /CUMM) Pending 3.77 L Hgb (12.0 - 16.0 G/DL) Pending 11.8 L Hct (37 - 47 %) Pending 34.5 L MCV (81.0 - 99.0 FL) Pending 91.5 MCH (27.0 - 31.0 PG) Pending 31.2 H MCHC (33.0 - 37.0 G/DL) Pending 34.0 RDW (11.5 - 14.5 %) Pending 15.8 H Plt Count (130 - 400 /CUMM) Pending 169 MPV (7.4 - 10.4 FL) Pending 10.0 Gran % (42.2 - 75.2 %) Pending 88.7 H Lymphocytes % (20.5 - 51.1 %) Pending 4.6 L Monocytes % (1.7 - 9.3 %) Pending 6.2 Eosinophils % (0 - 5 %) Pending 0.5 Basophils % (0.0 - 2.0 %) Pending 0 Absolute Granulocytes (1.4 - 6.5 /CUMM) Pending 17.3 H Segmented Neutrophils (42.2 - 75.2 %) 79 H Band Neutrophils (0.0 - 5.0 %) 7 H Absolute Lymphocytes (1.2 - 3.4 /CUMM) Pending 0.9 L Lymphocytes (20.5 - 51.1 %) 6 L Monocytes (1.7 - 9.3 %) 8 Absolute Monocytes (0.10 - 0.60 /CUMM) Pending 1.2 H Absolute Eosinophils (0.0 - 0.7 /CUMM) Pending 0.1 Absolute Basophils (0.0 - 0.2 /CUMM) Pending 0 Platelet Estimate (ADEQUATE) VERIFIED BY SMEAR Anisocytosis 1+ Assessment/Plan Assessment/Plan This 67 F admitted with gallstone pancreatitis is now PPD#3 s/p ERCP with normal cholangiogram and sphincterotomy with improving pain and currently nontender, anticipating cholecystectomy today keep npo / ivf f/u labs hep sc - dvt ppx iv unasyn management as per primary team tori cano add on this afternoon with
--- NOTE | 2018-01-30 09:08 | Patient Discharge Instructions ---
Discharge Instructions General Discharge Information You were seen/treated for: gallstone pancreatitis You had these procedures: laproscopic cholecystectomy Special Instructions: Take all medactions as directed. Follow-up with your primary care physician, Dr. Middleton, within 48 hours of discharge. Follow up with Dr. Godwin within 2 weeks of discharge. Follw-up with your surgeon Dr. Mariee, you can call his office on Friday to schedule an appointment. Call your doctor or return to the ER if you have significantly worsening abdominal pain, fever, lightheadedness, loss of consciousness, or shortness of breath. Acute Coronary Syndrome Inclusion Criteria At DC or during hospital stay patient has or had the following: ACS DIAGNOSIS No Discharge Core Measures Meds if any: Prescribed or Continued at Discharge Meds if any: NOT Prescribed or Continued at Discharge Congestive Heart Failure Inclusion Criteria At DC or during hospital stay patient has or had the following: CHF DIAGNOSIS No Discharge Core Measures Meds if any: Prescribed or Continued at Discharge Meds if any: NOT Prescribed or Continued at Discharge Cerebrovascular accident Inclusion Criteria At DC or during hospital stay patient has or had the following: CVA/TIA Diagnosis No Discharge Core Measures Meds if any: Prescribed or Continued at Discharge Meds if any: NOT Prescribed or Continued at Discharge Venous thromboembolism Inclusion Criteria VTE Diagnosis No VTE Type NONE VTE Confirmed by (Test) NONE Discharge Core Measures - Per Current guidelines, there needs to be overlap - treatment for the first 5 days of Warfarin therapy. - If discharged on Warfarin prior to 5 days of - overlap therapy, the patient will need to be - assessed for post discharge needs including - *Post discharge parental anticoagulation - *Warfarin and/or parental anticoagulation education - *Follow up date to check INR post discharge At least 5 days overlap therapy as Inpatient No Meds if any: Prescribed or Continued at Discharge Note: Overlap Therapy is Warfarin and Anticoagulant Meds if any: NOT Prescribed or Continued at Discharge
[2018-01-30] MEDS ORDERED: DILAUDID2 M1 PO (09:11)
[2018-01-30 09:24] LABS: GRANULOCYTE % 87.6 % (42.2-75.2)
[2018-01-30] MEDS ORDERED: ZOFRAN ODT4 M1 SL (09:50)
--- NOTE | 2018-01-30 10:34 | Discharge Summary ---
Visit Information Visit Dates Admission Date: 01/26/18 Discharge Date: 01/31/18 Hospital Course Course Attending Physician: Isha Briseno MD Primary Care Physician: Cecil Middleton MD Consulting Request: 1 Consulting Specialty: Gastroenterology Consulting Request: 2 Consulting Specialty: General Surgery Hospital Course: Patient is a 67-year-old female with a PMH significant for HTN, GERD, COPD who presented to the [facility] ED complaining of approximately 2 week history of progressively worsening abdominal pain which became severe on the day prior to admission. She reported the pain as sharp, 10/10, left lower quadrant on arrival. She had associated nausea, vomiting, dizziness, chills. She noted no change in stool. Vital signs on admission: Blood pressure 158/70, pulse 77, respiratory 24, temperature 97.7, pulse ox 98 on room air Labs on admission:WBC 8.6, hemoglobin 14.4, platelets 208, sodium 139, potassium 4.2, BUN 20, creatinine 1, glucose 125, total bilirubin 4.6, direct 4.3.4, AST 310, AST 397, alkaline phosphatase 332, CRP 12.7, amylase 1171, lipase more than 10,[address] showed cholelithiasis, peripancreatic stranding significant to acute uncomplicated pancreatitis, bile duct measured 8 mm in the region of the head of the pancreas. The patient was admitted to the general medicine floor and treated for the following problems: #Gallstone pancreatitis Patient was initially kept nothing by mouth and aggressively hydrated with lactated Ringer's. She was evaluated by the gastroenterology service, Dr. Godwin. She underwent an ERCP on the second day of hospitalization (01/27/18). LFTs were trended tremendously elevated trended down after the ERCP. General surgery was also consulted, for cholecystectomy. Prior to surgery patient's pain was controlled with Dilaudid and she was begun on a clear liquid diet which was advanced to full liquid as tolerated well. Patient then underwent oversew cholecystectomy on hospital day 4 (01/30/18). She tolerated the procedure well. After her diet was advanced to a regular diet which she also showed to tolerate it well she was discharged on a short course of by mouth pain medication and antiemetics with instructions to follow-up with Dr. Oliveira, general surgery, Dr. Godwin, GI, and her PCP. #Chronic medical problems including COPD, HTN, GERD. Her omentum attempt hypertensive medication was initially held due to hypotension. Once her BP normalized she was again restarted on an equivalent dose of her home antihypertensive. She was seen by respiratory therapy to assess for the need for continued respiratory care given her COPD. The rest of her home medications were continued. Allergies: Coded Allergies: No Known Allergies (01/26/18) Significant Procedures: Laproscopic cholecystectomy Pertinent Lab Results: Amylase 1,171 Lipase > 10,000 T bili: 6.9 --> 2.1 Direct Bili: 5.9 --> 1.7 AST: 302 --> 51 ALT: 372 --> 122 Alk Phos: 311 --> 184 Triglycerides: 49 Cholesterol: 220 LDL: 119 HDL: 87 serum alcohol < 10 Disposition Summary Disposition Principal Diagnosis: gallstone pancreatitis Additional Diagnosis: HTN, COPD Discharge Disposition: home or self care Discharge Instructions General Discharge Information Code Status: Full Code Patient's Diet: Heart healthy Patient's Activity: As tolerated Follow-Up Instructions/Appts: Follow-up with your primary care physician, Dr. Middleton, within 48 hours of discharge. Follow up with Dr. Godwin within 2 weeks of discharge. Follw-up with your surgeon Dr. Mariee within one week of discharge, for post- operative care. Medications at Discharge Discharge Medications: Continue taking these medications: Fluticasone-Salmeterol (Advair 100-50 Diskus) 100 MCG-50 MCG/DOSE BLST.W.DEV 1 Puff Inhale through mouth TWICE DAILY Comments: NOT GIVEN THIS ADMISSION Losartan/Hydrochlorothiazide (Hyzaar 100-12.5 Tablet) 100 MG-12.5 MG TABLET 1 Tablet ORAL DAILY Comments: Last Taken:01/31/18 Time:09:00A.M Albuterol Sulfate (Ventolin Hfa) 90 MCG HFA.AER.AD 2 Puff Inhale through mouth EVERY 4-6 HOURS NEEDED as needed for WHEEZE Qty = 1 Comments: Last Taken:01/31/18 Time:09:00A.M Umeclidinium [place] (Incruse Ellipta) 62.5 MCG/ACTUATION BLST.W.DEV 1 PUFF ORAL DAILY Qty = 90 Comments: NOT GIVEN THIS ADMISSION Omeprazole (Omeprazole) 40 MG CAPSULE.DR 1 Capsule ORAL DAILY Qty = 60 Comments: NOT GIVEN THIS ADMISSION Start taking the following new medications: Oxycodone HCl/Acetaminophen (Percocet 5-325 MG Tablet) 5 MG-325 MG TABLET 1 Tablet ORAL EVERY 6 HOURS NEEDED as needed for post op pain Qty = 10 No Refills Instructions: . Comments: Last Taken:NOT GIVEN THIS ADMISSION Time: Ondansetron (Zofran Odt) 4 MG TAB.RAPDIS 1 Tablet SUBLINGUAL THREE TIMES DAILY as needed for nausea Qty = 10 No Refills Instructions: . Comments: NOT GIVEN THIS ADMISSION Copies To: Kane MCCRARY,Cecil Rivera; Ranjith Mariee DO; Tato MCCRARY,Aroldo
[2018-01-30] MEDS ORDERED: PERCOCET 5-3251 EACH PO (13:06)
[2018-01-30 14:53] VITALS: BP 157/80
--- NOTE | 2018-01-30 18:17 | Operative Report ---
Operative/Inv Procedure Report Surgery Date: 01/30/18 Name of Procedure: Laparoscopic cholecystectomy Pre-Operative Diagnosis: Gallstone pancreatitis Post-Operative Diagnosis: Same Estimated Blood Loss: 50ml to 100ml Surgeon/Field Marketing Manager: Ranjith Ayala Anesthesia: general endotracheal tube IV Fluids: 750 cc Drains: None Specimens: Gallbladder Complications: None Condition: Stable Operative Indication: This is a 67-year-old female that presented to the emergency room with abdominal pain. Patient was diagnosed with gallstone pancreatitis and was admitted to the medical service. Patient underwent appropriate resuscitation and procedures. Her pancreatitis has been improving and at that point a laparoscopic possible open cholecystectomy was discussed in detail. All risks including but not limited to bleeding, infection, bile leak, and injury to surrounding duct/bowel were discussed in detail. The patient understood everything and decided to proceed. Operative/Procedure Note Note: The patient was brought to the operating room and placed on the operating room table in supine position. Venodyne stockings were placed and adequate general endotracheal anesthesia was obtained. The patient was prepped and draped in standard surgical fashion. We began the procedure by making a 2 cm transverse incision in the infraumbilical crease. The incision was carried down to the fascia, once the fascia was clearly visualized it was picked up between 2 moses clamps. The fascia was divided in the midline and once we entered the peritoneum 2 stay 0 Vicryl sutures were placed on each side. A 12 mm blunt port was inserted and the abdominal cavity was insufflated to 15 mmHg. A 10 mm 30 laparoscope was introduced and upon initial examination no obvious gross pathology was seen. There was diffuse colonic distention and edema, the abdomen did not appear to insuflate in the normal way. We did note a mildly distended gallbladder in the right upper quadrant. Accessory trocars were placed, all 5 mm, one in the epigastrium and 2 in the right upper quadrant (one in the midclavicular line and one in the anterior axillary line, both 2 fingerbreadths below the costal margin). The gallbladder was grasped with the lateralmost trocar and retracted up over the liver. Using the other 2 accessory trocars the infundibulum was grasped and the peritoneum was lysed using blunt dissection and using hook electrocautery. The cystic duct and cystic artery were visualized. The common bile duct was visualized and it was away from our area of dissection. The cystic duct and artery were skeletonized and divided between clips, 3 clips to stay and one clip on the gallbladder side for the duct and 2 clips to stay and one clip on the gallbladder side for the artery. The gallbladder was dissected off the liver bed using hook electrocautery maintaining hemostasis. The wall of the gallbladder was noted to be thick with edema. Prior to completely removing the gallbladder off the liver bed we examined the area of dissection no obvious bile leak or bleeding was noted, the clips appeared to be in good position. The gallbladder was completely detached from the liver bed. We switched to a 5 mm laparoscope and a 10 mm Endobag was introduced through the umbilical trocar site. The gallbladder was placed in the bag and removed through the umbilicus. The abdomen was reinsufflated. We switched back to a 10 mm laparoscope and examined our area of dissection. No obvious bile leak or bleeding was noted. There was bleeding noted ftom the liver bed which was controlled with electrocautery and surgicel. The right upper quadrant was irrigated until clear. All ports were removed under direct visualization, no obvious bleeding was noted. The umbilical trocar site was closed using 0 Vicryl suture. The skin was closed using 4-0 Monocryl. Steri-Strips and dressings were placed. The patient was successfully extubated and transferred to the recovery room in stable condition. The patient tolerated the procedure well with no complications. Findings: Thick gallbladder wall, diffuse intra-abdominal edema, distended colon, large/ small gallstones. CC: Kane MCCRARY,Cecil Rivera
[2018-01-30 19:30] VITALS: BP 120/70
--- NOTE | 2018-01-30 21:45 | PN- General Surgery ---
Subjective Subjective: POSTOP CHECK feeling much better, hungry, russel clears, +void, paion controlled w meds, no n/v/ cp/sob Objective Vital Signs and I&Os Vital Signs Date Time Temp Pulse Resp B/P B/P Pulse O2 O2 Flow FiO2 Mean Ox Delivery Rate 01/31 2012 86 120/70 01/30 1453 98.5 92 20 157/80 90 Room Air 01/30 0709 97.4 102 20 156/78 93 Intake & Output 01/30 0801/30 0000 01/29 0000 Intake Total 1490 1050 1650 1630 800 Output Total 850 650 500 550 600 300 Balance 640 400 -500 1100 1030 500 Intake, IV 1250 1050 1250 1600 800 Intake, Oral 240 400 30 0 Number 0 0 0 0 Bowel Movements Output, Urine 850 650 500 550 600 300 Patient 199 lb Weight Physical Exam: gen- nad card- rrr pulm- no audible wheeze abd- soft, obese, mild ttp, dressings cdi ext- calves soft nt Assessment/Plan Assessment/Plan A: POD0 sp lap rachael for resolved gs pancreatitis, stable P: - DVT ppx - diet as tolerated - prn pain meds - OOB, ambulate - am labs - resume care per primary team - will anabel attending
--- NOTE | 2018-01-31 06:01 | PN- Housestaff ---
See Addendum Subjective Follow-up For: Gallstone pancreatitis, status post ERCP POD #1 laparoscopic cholecystectomy Subjective: Patient was seen and examined at bedside. She is resting comfortably. She reports feeling significant improvement in her left-sided abdominal pain. At rest she reports no pain. With ambulation she has pain at the surgical site. She reports tolerating a full liquid diet well and being hungry, she has not had a bowel movement, but denies any nausea, vomiting, fever, chills, chest pain, shortness of breath. Review of Systems Constitutional: Denies: chills, fever, malaise. EENTM: Reports: no symptoms. Cardiovascular: Reports: no symptoms. Respiratory: Reports: no symptoms. Gastrointestinal: Reports: abdominal pain (with ambulation). Denies: bloating. Genitourinary: Reports: no symptoms. Musculoskeletal: Reports: no symptoms. Skin: Reports: no symptoms. Objective Last 24 Hrs of Vital Signs/I&O Vital Signs Date Time Temp Pulse Resp B/P B/P Pulse O2 O2 Flow FiO2 Mean Ox Delivery Rate 01/31 2012 86 120/70 01/30 1930 98.0 86 18 120/70 90 Nasal 2.0L Cannula 01/30 1453 98.5 92 20 157/80 90 Room Air 01/30 0709 97.4 102 20 156/78 93 Intake & Output 01/31 0800 01/31 0000 01/30 1600 Intake Total 525 1490 Output Total 250 700 850 Balance -250 -175 640 Intake, IV 225 1250 Intake, Oral 300 240 Number 0 0 Bowel Movements Output, Urine 250 700 850 Physical Exam General Appearance: Alert, Oriented X3, Cooperative, No Acute Distress Skin Temp/Moisture Exam: Warm/Dry Sepsis Skin Exam (color): Normal for Ethnicity Cardiovascular: Regular Rate, Normal S1, Normal S2 Lungs: Clear to Auscultation, Normal Air Movement Abdomen: [address] on abdomen, clean dry and intact, mild TTP near surgical site. Neurological: Normal Speech, Normal Tone, Sensation Intact Extremities: No Clubbing, No Cyanosis, No Edema Current Medications: Current Medications Sig/Stefany Start time Last Medication Dose Route Stop Time Status Admin Albuterol Sulfate 2 PUF Q4-6 PRN PRN 01/27 0200 AC INH Ampicillin Sodium/ 3,000 MG Q6H 01/27 1915 DC 01/31 Sulbactam Sodium IV 0130 Sodium Chloride 100 ML Docusate Sodium 100 MG DAILY 01/31 1000 AC PO Fentanyl Citrate 250 MCG .STK-MED ONE 01/30 1615 DC IM 01/30 1616 Fluticasone 2 PUF BID 01/27 0152 AC 01/30 Propionate INH 2203 Heparin Sodium 5,000 UNIT Q8 01/28 2200 AC 01/31 (Porcine) SC 0600 Hydrochlorothiazide 12.5 MG DAILY 01/30 1000 AC 01/30 PO 2012 Hydromorphone HCl 1 MG Q4P PRN 01/29 1800 AC 01/31 IV 0600 Lactated Ringer's 1,000 ML Q6H 01/29 1015 DC 01/30 IV 0434 Losartan Potassium 100 MG DAILY 01/30 1000 AC 01/30 PO 2012 Melatonin 5 MG AT BEDTIME 01/30 2200 AC 01/30 PO 220 Midazolam HCl 2 MG .STK-MED ONE 01/30 1616 DC IM 01/30 1617 Ondansetron HCl 4 MG Q6P PRN 01/27 2345 AC 01/30 IV 0054 Pantoprazole Sodium 40 MG DAILY 01/27 0015 AC 01/30 IV 1003 Polyethylene Glycol 17 GM DAILY 01/31 1000 AC PO Sodium Chloride 1,000 ML Q10H 01/30 1030 AC 01/31 IV 0600 Tiotropium [place] 1 PUF DAILY 01/27 1000 AC 01/30 INH 1003 Last 24 Hrs of Lab/[place] Results Last 24 Hrs of Labs/Mics: Laboratory Tests 01/30/18 0605: Anion Gap 9, Estimated GFR > 60, BUN/Creatinine Ratio 20.0, Total Bilirubin 2.1 H, Direct Bilirubin 1.7 H, AST 51 H, ALT 122 H, Alkaline Phosphatase 184 H, Total Protein 5.5 L, Albumin 2.7 L, CBC w Diff NO MAN DIFF REQ, RBC 3.65 L, MCV 92.4, MCH 31.3 H, MCHC 33.9, RDW 15.5 H, MPV 9.4, Gran % 87.6 H, Lymphocytes % 4.9 L, Monocytes % 6.6, Eosinophils % 0.9, Basophils % 0, Absolute Granulocytes 11.3 H, Absolute Lymphocytes 0.6 L, Absolute Monocytes 0.9 H, Absolute Eosinophils 0.1, Absolute Basophils 0 Assessment/Plan Assessment: Patient is a 67-year-old female with a PMH significant for HTN, GERD, and COPD who presented complaining of approximately 2 week history of abdominal pain which increased in intensity the night prior to admission. On presentation she complained of 10/10 abdominal pain radiating to her back. She had associated nausea, chills, and episode of emesis in the ED. She had also had poor appetite. She denied any diarrhea or changes to her stool. She endorsed occasional alcohol use. #Gallstone pancreatitis POD # lap cholecystectomy. Tolerated procedure well. Pain is significantly improved. tolerated full liquid diet post op well. -convert to oral opiod pain medication -DC antibiotics -Continue IV Zofran for nausea -post op will start with full liquid diet and plan to advance as tolerated -advance diet to regular from full liquids with lunch, if well tolerated can DC home with outpatient follow-up with Dr. Mariee and Dr. Godwin #Chronic medical problems including COPD, HTN, GERD -Continue TRC/nebs -Continue home medications Heart healthy diet DVT prophylaxis: Subcutaneous heparin, ALPS CODE STATUS: Full code Problem List: 1. Gallstone pancreatitis 2. Status post cholecystectomy Pain Ratin Pain Location: abd pain with ambulation Pain Goal: Pain 4 or less Pain Plan: transition to PO opiods Tomorrow's Labs & Rationales: none Consulting Request: Consulting Specialty: General Surgery
[2018-01-31 06:27] VITALS: BP 156/74
[2018-01-31 08:49] LABS: ABSOLUTE BASOPHIL COUNT 0 /CUMM (0.0-0.2); ABSOLUTE EOSINOPHIL COUNT 0 /CUMM (0.0-0.7); ABSOLUTE GRANULOCYTE CT 8.1 /CUMM (1.4-6.5); ABSOLUTE LYMPH COUNT 0.5 /CUMM (1.2-3.4); ABSOLUTE MONOCYTE COUNT 0.5 /CUMM (0.10-0.60); BASOPHIL % 0 % (0.0-2.0); EOSINOPHIL % 0 % (0-5); HEMATOCRIT 31.6 % (37-47); MEAN CORPUSCULAR HGB 31.2 PG (27.0-31.0); MEAN CORPUSCULAR HGB CONC 33.9 G/DL (33.0-37.0); MEAN PLATELET VOLUME 9.3 FL (7.4-10.4); PLATELET COUNT 208 /CUMM (130-400); RBC DISTRIBUTION WIDTH 15.3 % (11.5-14.5); RED BLOOD CELL CT 3.44 /CUMM (4.20-5.40); WHITE BLOOD CELL COUNT 9.1 /CUMM (4.8-10.8)
--- NOTE | 2018-01-31 09:06 | PN- General Surgery ---
Subjective Subjective: Pain reports significant improvement in her abdominal pain since surgery. Denies nausea, vomiting. Tolerated fulls last night. Voiding spontanously. Offers no other complaints. Objective Vital Signs and I&Os Vital Signs Date Time Temp Pulse Resp B/P B/P Pulse O2 O2 Flow FiO2 Mean Ox Delivery Rate 01/31 1339 97.7 71 18 132/62 96 Room Air 01/31 0901 98.1 77 20 156/74 01/31 0627 98.1 77 20 156/74 94 01/31 2012 86 120/70 01/30 1930 98.0 86 18 120/70 90 Nasal 2.0L Cannula 01/30 1453 98.5 92 20 157/80 90 Room Air Intake & Output 01/31 1600 01/31 0800 01/31 0000 01/30 1600 01/30 0800 01/30 0000 Intake Total 360 567 9812 1050 Output Total 700 700 850 650 500 Balance 120 -175 640 400 -500 Intake, IV 789 447 1199 1050 Intake, Oral 120 300 240 Number 0 0 Bowel Movements Output, Urine 700 700 850 650 500 Physical Exam: Gen - nad Abd - soft, obese, dressings c/d/i, bowel sounds present, appropriately tender vania-incisionally Current Medications: Current Medications Sig/Stefany Start time Last Medication Dose Route Stop Time Status Admin Albuterol Sulfate 2 PUF Q4-6 PRN PRN 01/27 0200 AC INH Ampicillin Sodium/ 3,000 MG Q6H 01/27 1915 DC 01/31 Sulbactam Sodium IV 0130 Sodium Chloride 100 ML Docusate Sodium 100 MG DAILY 01/31 1000 AC 01/31 PO 0901 Fentanyl Citrate 250 MCG .STK-MED ONE 01/30 1615 DC IM 01/30 1616 Fluticasone 2 PUF BID 01/27 0152 AC 01/31 Propionate INH 0900 Heparin Sodium 5,000 UNIT Q8 01/28 2200 AC 01/31 (Porcine) SC 1348 Hydrochlorothiazide 12.5 MG DAILY 01/30 1000 AC 01/31 PO 0901 Hydromorphone HCl 1 MG Q4P PRN 01/29 1800 DC 01/31 IV 0600 Losartan Potassium 100 MG DAILY 01/30 1000 AC 01/31 PO 0901 Melatonin 5 MG AT BEDTIME 01/30 2200 AC 01/30 PO 220 Midazolam HCl 2 MG .STK-MED ONE 01/30 1616 DC IM 01/30 1617 Ondansetron HCl 4 MG Q6P PRN 01/27 2345 AC 01/30 IV 0054 Oxycodone/ 1 TAB Q6P PRN 01/31 0645 AC Acetaminophen PO Pantoprazole Sodium 40 MG DAILY 01/27 0015 AC 01/31 IV 0901 Polyethylene Glycol 17 GM DAILY 01/31 1000 AC 01/31 PO 0901 Sodium Chloride 1,000 ML Q10H 01/30 1030 DC 01/31 IV 0600 Tiotropium [place] 1 PUF DAILY 01/27 1000 AC 01/31 INH 0900 Results Last 48 Hours of Labs: Laboratory Tests 01/31 01/30 0750 0605 Chemistry Sodium (137 - 145 mmol/L) 134 L 132 L Potassium (3.5 - 5.1 mmol/L) 4.0 3.9 Chloride (98 - 107 mmol/L) 96 L 97 L Carbon Dioxide (22 - 30 mmol/L) 28 26 Anion Gap (5 - 16) 11 9 BUN (7 - 17 mg/dL) 13 14 Creatinine (0.5 - 1.0 mg/dL) 0.8 0.7 Estimated GFR (>60 ml/min) > 60 > 60 BUN/Creatinine Ratio (7 - 25 %) 16.3 20.0 Total Bilirubin (0.2 - 1.3 mg/dL) 1.2 2.1 H Direct Bilirubin (< 0.4 mg/dL) 1.1 H 1.7 H AST (14 - 36 U/L) 87 H 51 H ALT (9 - 52 U/L) 112 H 122 H Alkaline Phosphatase (<127 U/L) 173 H 184 H Total Protein (6.3 - 8.2 g/dL) 5.3 L 5.5 L Albumin (3.5 - 5.0 g/dL) 2.6 L 2.7 L Hematology CBC w Diff NO MAN DIFF REQ NO MAN DIFF REQ WBC (4.8 - 10.8 /CUMM) 9.1 12.9 H RBC (4.20 - 5.40 /CUMM) 3.44 L 3.65 L Hgb (12.0 - 16.0 G/DL) 10.7 L 11.4 L Hct (37 - 47 %) 31.6 L 33.7 L MCV (81.0 - 99.0 FL) 92.0 92.4 MCH (27.0 - 31.0 PG) 31.2 H 31.3 H MCHC (33.0 - 37.0 G/DL) 33.9 33.9 RDW (11.5 - 14.5 %) 15.3 H 15.5 H Plt Count (130 - 400 /CUMM) 208 205 MPV (7.4 - 10.4 FL) 9.3 9.4 Gran % (42.2 - 75.2 %) 88.9 H 87.6 H Lymphocytes % (20.5 - 51.1 %) 5.6 L 4.9 L Monocytes % (1.7 - 9.3 %) 5.5 6.6 Eosinophils % (0 - 5 %) 0 0.9 Basophils % (0.0 - 2.0 %) 0 0 Absolute Granulocytes (1.4 - 6.5 /CUMM) 8.1 H 11.3 H Absolute Lymphocytes (1.2 - 3.4 /CUMM) 0.5 L 0.6 L Absolute Monocytes (0.10 - 0.60 /CUMM) 0.5 0.9 H Absolute Eosinophils (0.0 - 0.7 /CUMM) 0 0.1 Absolute Basophils (0.0 - 0.2 /CUMM) 0 0 Assessment/Plan Assessment/Plan 67 F POD1 s/p lap rachael secondary to gallstone pancreatitis who is recovering well Advance to cardiac diet No further abx indicated Transition to po pain meds prn DVT - hsq, OOB, ambulate GI ppx on board Encourage IS No heavy lifting, strenous activty until f/u in 1-[address] Mariee Please provide pain rx if needed No further recommendations D/w Dr. Mariee Core Measures Venous Thromboembolism VTE Risk Factors Age>40 No Mechanical VTE Prophylaxis d/t N/A MechProphylax Ordered No VTE Pharm Prophylaxis d/t NA PharmProphylax ordered
[2018-01-31] MEDS ORDERED: ZOFRAN ODT4 M1 SL (10:07)
[2018-01-31] MEDS ORDERED: PERCOCET 5-3251 EACH PO (10:07)
[2018-01-31 10:41] LABS: GRANULOCYTE % 88.9 % (42.2-75.2)
[2018-01-31 13:39] VITALS: BP 132/62
== END 2018-01-31 15:20 | DRG 417 ==
LOC: ERH 11:57 → ERHI 21:36 → 2NB 21:36 → ENTRNSPT 22:40 → EDTRNSPTSTS 22:42 → EDTRNSPT 22:42 → 2NB 22:56 → CMPTRNSPT 01-27 07:05 → 2NB 01-27 07:12 → ENTRNSPT 01-27 16:51 → EDTRNSPTSTS 01-27 16:59 → EDTRNSPT 01-27 17:01 → CMPTRNSPT 01-27 17:23 → 2NB 01-29 14:12 → ENTRNSPT 01-30 18:59 → CMPTRNSPT 01-30 19:47 → ENPENDDIS 01-31 14:21 → ENTRNSPT 01-31 14:50 → EDTRNSPT 01-31 15:15 → EDTRNSPTSTS 01-31 15:15 → 2NB 01-31 15:20 → CMPTRNSPT 01-31 16:07
PROVIDERS: Dermatology; Internal Medicine Hematology & Oncology; Physician Assistant; Student in an Organized Health Care Education/Training Program
PROC: 0F788ZZ Dilation of Cystic Duct, Via Natural or Artificial Opening Endoscopic (ICD-10-PCS; 2018-01-27)
PROC: 0FT44ZZ Resection of Gallbladder, Percutaneous Endoscopic Approach (ICD-10-PCS; principal; 2018-01-30)
PROC: 3E0T3BZ Introduction of Anesthetic Agent into Peripheral Nerves and Plexi, Percutaneous Approach (ICD-10-PCS; 2018-01-30)
DX: K80.20 Calculus of gallbladder without cholecystitis without obstruction (principal); K85.10 Biliary acute pancreatitis without necrosis or infection; K83.0 Cholangitis; J44.9 Chronic obstructive pulmonary disease, unspecified; I10 Essential (primary) hypertension; K21.9 Gastro-esophageal reflux disease without esophagitis; R74.0 Nonspecific elevation of levels of transaminase and lactic acid dehydrogenase [LDH]; Z87.891 Personal history of nicotine dependence; Z79.51 Long term (current) use of inhaled steroids; D72.829 Elevated white blood cell count, unspecified; M19.90 Unspecified osteoarthritis, unspecified site; Z86.14 Personal history of Methicillin resistant Staphylococcus aureus infection
CPT/HCPCS: 2NBP; 36415; 36592; 74177; 80307; 81003; 82436; 87040; 93005; 93010; 96361; 96374; 96375; 96376; G0480; J0744; J1610; J1644; J1650; J2405; J2765; J3490; J7060; J7120; Q9967